=== PATIENT | male | born 1965 | race Two or more races ===

== ENCOUNTER 2017-04-29 13:38 | Inpatient (IN) | payer OTHER ==
[2017-04-29 15:02] VITALS: BMI 24.3
--- NOTE | 2017-04-29 17:33 | HP ---
COWS - Scale Resting Pulse: 0= IN 80 or Below Sweatin= Chills/Flushing Restless Observation: 3= Extraneous Movement Pupil Size: 0= Normal to Room Light Bone or Joint Aches: 2= Severe Diffuse Aches Runny Nose/ Eye Tearin= Runny Nose/Eyes GI Upset > 30mins: 2= Nausea/Diarrhea Tremor Observation: 2= Slight Tremor Visible Yawning Observation: 0= None Anxiety or Irritability: 2=Irritable/Anxious Goose Flesh Skin: 0=Smooth Skin COWS Score: 14 CIWA Score - CIWA Score Nausea/Vomitin-Mild Nausea/No Vomiting Muscle Tremors: 4-Moderate,w/Arms Extend Anxiety: 4-Mod. Anxious/Guarded Agitation: 4-Moderately Restless Paroxysmal Sweats: 1-Minimal Palms Moist Orientation: 1-Uncertain about Date Tacttile Disturbances: 0-None Auditory Disturbances: 0-None Visual Disturbances: 0-None Headache: 0-None Present CIWA-Ar Total Score: 15 Admission [facility] - HPI Chief Complaint: withdrawal sx Allergies/Adverse Reactions: Allergies Allergy/AdvReac Type Severity Reaction Status Date / Time No Known Allergies Allergy Verified 10/21/14 12:31 History of Present Illness: 51 years old male with long history of alcohol opiate nicotine dependence has eczema and depression is admitted to detox Exam Limitations: No Limitations - Ebola screening Have you traveled outside of the country in the last 21 days: No Have you had contact with anyone from an Ebola affected area: No Have you been sick,other than usual withdrawal symptoms: No Do you have a fever: No - Review of Systems Constitutional: Loss of Appetite, Changes in sleep, Unintentional Wgt. Loss EENT: reports: Blurred Vision (eye glasses) Respiratory: reports: No Symptoms reported Cardiac: reports: No Symptoms Reported GI: reports: Nausea, Poor Appetite, Poor Fluid Intake, Abdominal cramping : reports: No Symptoms Reported Musculoskeletal: reports: Back Pain, Joint Pain, Muscle Pain, Neck Pain Integumentary: reports: Lesions (legs and arms and lower trunk eczema) Neuro: reports: Tremors Endocrine: reports: No Symptoms Reported Hematology: reports: No Symptoms Reported Psychiatric: reports: Judgement Intact, Depressed Other Systems: Reviewed and Negative Patient History - Patient Medical History Hx Anemia: No Hx Asthma: No Hx Chronic Obstructive Pulmonary Disease (COPD): No Hx Cancer: No Hx Cardiac Disorders: No Hx Congestive Heart Failure: No Hx Hypertension: No Hx Hypercholesterolemia: No Hx Pacemaker: No HX Cerebrovascular Accident: No Hx Seizures: No Hx Dementia: No Hx Diabetes: No Hx Gastrointestinal Disorders: No Hx Liver Disease: No Hx Genitourinary Disorders: No Hx Sexually Transmitted Disorders: No Hx Renal Disease (ESRD): No Hx Thyroid Disease: No Hx Human Immunodeficiency Virus (HIV): No (negative) Hx Hepatitis C: No Hx Depression: Yes Hx Suicide Attempt: No Hx Bipolar Disorder: No Hx Schizophrenia: No - Patient Surgical History Past Surgical History: No Hx Neurologic Surgery: No Hx Cataract Extraction: No Hx Cardiac Surgery: No Hx Lung Surgery: No Hx Breast Surgery: No Hx Breast Biopsy: No Hx Abdominal Surgery: No Hx Appendectomy: No Hx Cholecystectomy: No Hx Genitourinary Surgery: No Hx Orthopedic Surgery: No - PPD History Previous Implant?: Yes Documented Results: Negative w/proof Implanted On Prior [facility] Admission?: Yes Date: 10/18/14 Results: 0 mm PPD to be Administered?: Yes - Smoking Cessation Smoking history: Current every day smoker Have you smoked in the past 12 months: Yes Aproximately how many cigarettes per day: 20 Cigars Per Day: 0 Hx Chewing Tobacco Use: No Initiated information on smoking cessation: Yes 'Breaking Loose' booklet given: 04/29/17 - Substance & Tx. History Hx Alcohol Use: Yes Hx Substance Use: Yes Substance Use Type: Alcohol, Cocaine, Heroin, Opiates Hx Substance Use Treatment: Yes (2015) - Substances Abused Alcohol Route: Oral Frequency: Daily Amount used: pint vodka Age of first use: 17 Date of Last Use: 04/29/17 Heroin Route: Inhalation Frequency: Daily Amount used: 10 bags Age of first use: 27 Date of Last Use: 04/29/17 Admission Physical Exam [facility]HS - Vital Signs Vital Signs: Vital Signs - 24 hr 04/29/17 15:01 Temperature 96.4 F L Pulse Rate 67 Respiratory 20 Rate Blood Pressure 124/71 - Physical General Appearance: Yes: Appropriately Dressed, Mild Distress, Thin, Tremorous, Irritable, Sweating, Anxious HEENTM: Yes: Hearing grossly Normal, Normal ENT Inspection, Normocephalic, Normal Voice Respiratory: Yes: Chest Non-Tender, Lungs Clear, Normal Breath Sounds, No Respiratory Distress, No Accessory Muscle Use Neck: Yes: Supple, Trachea in good position Breast: Yes: Breasts Symetrical Cardiology: Yes: Regular Rhythm, Regular Rate, S1, S2 Abdominal: Yes: Non Tender, Soft, Increased Bowel Sounds Genitourinary: Yes: Within Normal Limits Back: Yes: Normal Inspection Musculoskeletal: Yes: full range of Motion, Gait Steady, Back pain, Muscle Pain Extremities: Yes: Normal Range of Motion, Non-Tender, Tremors, Erythema (rashes legs arms lower trunk) Neurological: Yes: Alert, Motor Strength 5/5, Normal Response, Depressed Affect Integumentary: Yes: Warm, Rash (legs arms lower trunk) Lymphatic: Yes: Within Normal Limits - Diagnostic (1) Nicotine dependence Current Visit: Yes Status: Acute Qualifiers: Nicotine product type: cigarettes Substance use status: in withdrawal Qualified Code(s): F17.213 - Nicotine dependence, cigarettes, with withdrawal; F17.213 - Nicotine dependence, cigarettes, with withdrawal (2) Alcohol dependence with uncomplicated withdrawal Current Visit: Yes Status: Acute (3) Opioid dependence with withdrawal Current Visit: Yes Status: Acute (4) Cocaine dependence, uncomplicated Current Visit: Yes Status: Chronic (5) Eczema Current Visit: Yes Status: Chronic Qualifiers: Eczema type: flexural Qualified Code(s): L20.82 - Flexural eczema; L20.82 - Flexural eczema (6) Depression Current Visit: Yes Status: Suspected Qualifiers: Depression Type: dysthymia Qualified Code(s): F34.1 - Dysthymic disorder; F34.1 - Dysthymic disorder; F34.1 - Dysthymic disorder (7) Weight loss Current Visit: Yes Status: Acute BHS Breath Alcohol Content Breath Alcohol Content: 0 Urine Drug Screen - Results Drug Screen Negative: No Urine Drug Screen Results: JAIR-Cocaine, OPI-Opiates, BZO-Benzodiazepines, MTD- Methadone, OXY-Oxycodone
[2017-04-29] MEDS ORDERED: NICOTINE POLACRILEX 4 MG GUM BC PRN (17:45)
[2017-04-29] MEDS ORDERED: MAGNESIUM CITRATE 300 ML BOTTLE PO PRN (17:45)
[2017-04-29] MEDS ORDERED: chlordiazePOXIDE HCL 25 MG CAPSULE PO PRN (17:45)
[2017-04-29] MEDS ORDERED: MENTHOL/PHENOL 1 EACH UD MM PRN (17:45)
[2017-04-29] MEDS ORDERED: guaiFENesin/D-METHORPHAN HB 10 ML UNIT-DOSE CUPS PO PRN (17:45)
[2017-04-29] MEDS ORDERED: MAG HYDROX/AL HYDROX/SIMETH 30 ML UNIT-DOSE CUP PO PRN (17:45)
[2017-04-29] MEDS ORDERED: P-EPHED 60MG/TRIPROLIDI 2.5MG TABLET PO PRN (17:45)
[2017-04-29] MEDS ORDERED: ACETAMINOPHEN 325 MG TABLET (FP) PO PRN (17:45)
[2017-04-29] MEDS ORDERED: MAGNESIUM HYDROX 2400MG/30ML ORAL SUSPENSION 30 ML CUP PO PRN (17:45)
[2017-04-29] MEDS ORDERED: LOPERAMIDE HCL 2 MG CAPSULE PO PRN (17:45)
[2017-04-29] MEDS ORDERED: METHADONE HCL 10 MG TABLET (FOR DETOX USE ONLY) PO ONE ×2 (19:15→23:00)
[2017-04-29] MEDS: THIAMINE HCL 100 MG TABLET (FP) PO SCH (22:23)
[2017-04-29] MEDS: diphenhydrAMINE HCL 50 MG CAPSULE PO PRN (22:23)
[2017-04-29] MEDS: chlordiazePOXIDE HCL 25 MG CAPSULE PO SCH (22:24)
[2017-04-29] MEDS: TRIAMCINOLONE ACET 0.1% CREAM 15 GM TUBE TP SCH (22:25)
[2017-04-29 22:27] LABS: URINE APPEARANCE SLCLOUDY; URINE BILIRUBIN NEGATIVE (NEGATIVE); URINE BLOOD NEGATIVE (NEGATIVE); URINE COLOR YELLOW; URINE GLUCOSE (UA) NEGATIVE (NEGATIVE); URINE KETONE NEGATIVE (NEGATIVE); URINE NITRITE NEGATIVE (NEGATIVE); URINE PROTEIN NEGATIVE (NEGATIVE); URINE UROBILINOGEN NEGATIVE mg/dL (0.2-1.0)
[2017-04-30] MEDS: chlordiazePOXIDE HCL 25 MG CAPSULE PO SCH ×4 (05:20→22:28)
--- NOTE | 2017-04-30 08:24 | CONSULT ---
[facility] Psychiatric Consult - Data Date of interview: 04/30/17 Admission source: [facility] Identifying data: This is 51 years old male with no psychiatric hospitalization history intoxicated with: Alcohol, Cannabis, Opioids, Cocaine and Nicotine Substance Abuse History: - Smoking Cessation. Smoking history: Current every day smoker. Have you smoked in the past 12 months: Yes. Aproximately how many cigarettes per day: 20. Cigars Per Day: 0. Hx Chewing Tobacco Use: No. Initiated information on smoking cessation: Yes. 'Breaking Loose' booklet given : 04/29/17. - Substance & Tx. History. Hx Alcohol Use: Yes. Hx Substance Use : Yes. Substance Use Type: Alcohol, Cocaine, Heroin, Opiates. Hx Substance Use Treatment: Yes (2015). - Substances Abused. Alcohol. Route: Oral. Frequency: Daily. Amount used: pint vodka. Age of first use: 17. Date of Last Use: 04/29/17. Heroin. Route: Inhalation. Frequency: Daily. Amount used: 10 bags. Age of first use: 27. Date of Last Use: 04/29/17 Medical History: Eczema, Weight loss history. Psychiatric History: Denies past psychiatric history Physical/Sexual Abuse/Trauma History: Denies Additional Comment: Observation. Detox Unit Care Protocol Mental Status Exam - Mental Status Exam Alert and Oriented to: Person Cognitive Function: Fair Patient Appearance: Unkempt Mood: Sad Affect: Flat Patient Behavior: Sedated Speech Pattern: Delayed Voice Loudness: Mildly Soft/Quiet Thought Process: Circumstantial Thought Disorder: Being Controlled Hallucinations: Denies Suicidal Ideation: Denies Homicidal Ideation: Denies Insight/Judgement: Fair Sleep: Difficulty falling asleep Appetite: Weight loss Muscle strength/Tone: Mild Hypotonicity Gait/Station: Shuffling Additional Comments: Observation. Detox Unit Care Protocol Psychiatric Findings - Problem List ([place] 1, 2,3) (1) Alcohol dependence with uncomplicated withdrawal Current Visit: Yes Status: Acute (2) Nicotine dependence Current Visit: Yes Status: Acute Qualifiers: Nicotine product type: cigarettes Substance use status: in withdrawal Qualified Code(s): F17.213 - Nicotine dependence, cigarettes, with withdrawal; F17.213 - Nicotine dependence, cigarettes, with withdrawal (3) Opioid dependence with withdrawal Current Visit: Yes Status: Acute (4) Weight loss Current Visit: Yes Status: Acute (5) Cocaine dependence, uncomplicated Current Visit: Yes Status: Chronic (6) Depression Current Visit: Yes Status: Suspected Qualifiers: Depression Type: dysthymia Qualified Code(s): F34.1 - Dysthymic disorder; F34.1 - Dysthymic disorder; F34.1 - Dysthymic disorder (7) Alcohol dependence Current Visit: No Status: Acute (8) Cocaine dependence Current Visit: No Status: Acute (9) Heroin dependence Current Visit: No Status: Acute (10) Opioid-induced sleep disorder Current Visit: No Status: Acute (11) Drug-induced mood disorder Current Visit: Yes Status: Suspected - Initial Treatment Plan Initial Treatment Plan: Observation. Detox Unit Care Protocol
[2017-04-30] MEDS ORDERED: METHADONE HCL 10 MG TABLET (FOR DETOX USE ONLY) PO SCH (10:00)
[2017-04-30 10:08] LABS: MCH 30.7 pg (25.7-33.7); MCHC 33.2 g/dl (32.0-35.9); MEAN CELL VOLUME 92.4 fl (80-96); MEAN PLT VOLUME 7.2 fl (7.5-11.1); PLATELET COUNT 347 K/MM3 (134-434); RDW 13.5 % (11.9-15.9); WHITE BLOOD COUNT 5.2 K/mm3 (4.0-10.0)
[2017-04-30] MEDS: PRENATAL VITAMINS W/ FOLIC ACID TABLET (FP) PO SCH (10:19)
[2017-04-30] MEDS: NICOTINE 21 MG/24 HOURS TOPICAL PATCH TD SCH (10:21)
[2017-04-30 10:23] LABS: URINE LEUK ESTERASE Negative (NEGATIVE)
--- NOTE | 2017-04-30 10:43 | PN ---
S CIWA - CIWA Score Nausea/Vomitin-No Nausea/No Vomiting Muscle Tremors: 4-Moderate,w/Arms Extend Anxiety: 3 Agitation: 4-Moderately Restless Paroxysmal Sweats: 3 Orientation: 0-Oriented Tacttile Disturbances: 0-None Auditory Disturbances: 0-None Visual Disturbances: 0-None Headache: 0-None Present CIWA-Ar Total Score: 14 BHS COWS - Scale Resting Pulse: 0= [place] 80 or Below Sweatin=Flushed/Facial Moisture Restless Observation: 1= Difficult to Sit Still Pupil Size: 0= Normal to Room Light Bone or Joint Aches: 1= Mild Discomfort Runny Nose/ Eye Tearin= Runny Nose/Eyes GI Upset > 30mins: 1= Stomach Cramp Tremor Observation of Outstretched Hands: 2= Slight Tremor Visible Yawning Observation: 2= >3x During Session Anxiety or Irritability: 2=Irritable/Anxious Goose Flesh Skin: 0=Smooth Skin COWS Score: 13 BHS Progress Note (SOAP) Subjective: shakes sweats interrupted sleep agitation body aches Objective: 04/30/17 10:42 Vital Signs Temperature 97.1 F L 04/30/17 10:07 Pulse Rate 56 L 04/30/17 10:07 Respiratory Rate 18 04/30/17 10:07 Blood Pressure 121/82 04/30/17 10:07 O2 Sat by Pulse Oximetry (%) Laboratory Tests 04/29/17 04/30/17 22:10 07:00 WBC 5.2 RBC 4.08 Hgb 12.5 D Hct 37.7 MCV 92.4 MCH 30.7 MCHC 33.2 RDW 13.5 D Plt Count 347 D MPV 7.2 L Urine Color Yellow Urine Appearance Slcloudy Urine pH 5.0 Urine Protein Negative Urine Glucose (UA) Negative Urine Ketones Negative Urine Blood Negative Urine Nitrite Negative Urine Bilirubin Negative Urine Urobilinogen Negative labs pending [id number] ambulating no acute distress Assessment: 04/30/17 10:43 withdrawal sx Plan: continue detox increase fluids labs pending
--- NOTE | 2017-04-30 10:45 | EKG ---
Test Reason : Blood Pressure : / mmHG Vent. Rate : 061 BPM Atrial Rate : 061 BPM P-R Int : 190 ms QRS Dur : 092 ms QT Int : 418 ms P-R-T Axes : 079 075 063 degrees QTc Int : 420 ms NORMAL SINUS RHYTHM WITH SINUS ARRHYTHMIA NORMAL ECG NO PREVIOUS ECGS AVAILABLE Confirmed by BEN ZUNIGA, ARTI ([id number]) on 04/30/2017 10:45:00 AM Referred By: Confirmed By:ARTI CONTRERAS MD
[2017-04-30 10:53] LABS: ALBUMIN 2.8 g/dl (3.4-5.0); ALK PHOS 94 U/L (45-117); ANION GAP 5 (8-16); BILIRUBIN,TOTAL 0.5 mg/dL (0.2-1.0); CALCIUM 8.3 mg/dL (8.5-10.1); CO2 30 mmol/L (21-32); CREATININE 0.9 mg/dL (0.7-1.3); GLUCOSE,RANDOM 96 mg/dL (74-106); SGOT/AST 16 U/L (15-37); SGPT/ALT 22 U/L (12-78); TOT PROT 5.8 g/dl (6.4-8.2)
[2017-04-30] MEDS: TRIAMCINOLONE ACET 0.1% CREAM 15 GM TUBE TP SCH ×4 (12:13→22:27)
[2017-04-30] MEDS: THIAMINE HCL 100 MG TABLET (FP) PO SCH (22:28)
[2017-05-01] MEDS: chlordiazePOXIDE HCL 25 MG CAPSULE PO SCH ×3 (05:20→17:55)
[2017-05-01] MEDS: METHADONE HCL 5 MG TABLET (FOR DETOX USE ONLY) PO SCH (10:11)
[2017-05-01] MEDS: PRENATAL VITAMINS W/ FOLIC ACID TABLET (FP) PO SCH (10:11)
[2017-05-01] MEDS: NICOTINE 21 MG/24 HOURS TOPICAL PATCH TD SCH (10:12)
[2017-05-01] MEDS: TRIAMCINOLONE ACET 0.1% CREAM 15 GM TUBE TP SCH ×4 (10:12→22:42)
--- NOTE | 2017-05-01 10:19 | PN ---
S CIWA - CIWA Score Nausea/Vomitin Muscle Tremors: 2 Anxiety: 2 Agitation: 2 Paroxysmal Sweats: 2 Orientation: 0-Oriented Tacttile Disturbances: 2-Mild Itch/Numbness/Burn Auditory Disturbances: 0-None Visual Disturbances: 0-None Headache: 0-None Present CIWA-Ar Total Score: 12 BHS COWS - Scale Resting Pulse: 0= [place] 80 or Below Sweatin=Flushed/Facial Moisture Restless Observation: 1= Difficult to Sit Still Pupil Size: 1= Pupils >than Normal Bone or Joint Aches: 1= Mild Discomfort Runny Nose/ Eye Tearin= Nasal Congestion GI Upset > 30mins: 1= Stomach Cramp Tremor Observation of Outstretched Hands: 1= Tremor [place], Not Seen Yawning Observation: 0= None Anxiety or Irritability: 1=Feels Anxious/Irritable Goose Flesh Skin: 0=Smooth Skin COWS Score: 9 BHS Progress Note (SOAP) Subjective: interrupted sleep,sweats but better Objective: 05/01/17 10:17 Last Vital Signs Temp Pulse Resp BP Pulse Ox 97.9 F 72 18 130/86 05/01/17 06:00 05/01/17 06:00 05/01/17 06:00 05/01/17 06:00 Laboratory Tests 04/29/17 04/29/17 04/30/17 07:00 22:10 07:00 WBC 5.2 RBC 4.08 Hgb 12.5 D Hct 37.7 MCV 92.4 MCH 30.7 MCHC 33.2 RDW 13.5 D Plt Count 347 D MPV 7.2 L Sodium Potassium Chloride Carbon Dioxide Anion Gap BUN Creatinine Creat Clearance w eGFR Random Glucose Calcium Total Bilirubin AST ALT Alkaline Phosphatase Total Protein Albumin Urine Color Yellow Urine Appearance Slcloudy Urine pH 5.0 Ur Specific [place] 1.025 Urine Protein Negative Urine Glucose (UA) Negative Urine Ketones Negative Urine Blood Negative Urine Nitrite Negative Urine Bilirubin Negative Urine Urobilinogen Negative Ur Leukocyte Esterase Negative RPR Titer Hepatitis C Antibody <0.1 04/30/17 04/30/17 07:00 07:00 WBC RBC Hgb Hct MCV MCH MCHC RDW Plt Count MPV Sodium 138 Potassium 4.3 Chloride 103 Carbon Dioxide 30 Anion Gap 5 L BUN 14 Creatinine 0.9 D Creat Clearance w eGFR > 60 Random Glucose 96 Calcium 8.3 L Total Bilirubin 0.5 AST 16 ALT 22 Alkaline Phosphatase 94 D Total Protein 5.8 L Albumin 2.8 L Urine Color Urine Appearance Urine pH Ur Specific [place] Urine Protein Urine Glucose (UA) Urine Ketones Urine Blood Urine Nitrite Urine Bilirubin Urine Urobilinogen Ur Leukocyte Esterase RPR Titer Nonreactive Hepatitis C Antibody pt aox3 in nad lying in bed Assessment: 05/01/17 10:18 withdrawal sx's Plan: cont. detox increase fluids
[2017-05-01] MEDS: chlordiazePOXIDE 5 MG CAPSULE PO SCH (22:40)
[2017-05-01] MEDS: diphenhydrAMINE HCL 50 MG CAPSULE PO PRN (22:40)
[2017-05-01] MEDS: THIAMINE HCL 100 MG TABLET (FP) PO SCH (22:40)
[2017-05-02] MEDS: chlordiazePOXIDE 5 MG CAPSULE PO SCH ×3 (05:42→17:48)
[2017-05-02] MEDS: PRENATAL VITAMINS W/ FOLIC ACID TABLET (FP) PO SCH (10:10)
[2017-05-02] MEDS: METHADONE HCL 5 MG TABLET (FOR DETOX USE ONLY) PO SCH (10:10)
[2017-05-02] MEDS: NICOTINE 21 MG/24 HOURS TOPICAL PATCH TD SCH (10:11)
[2017-05-02] MEDS: TRIAMCINOLONE ACET 0.1% CREAM 15 GM TUBE TP SCH ×4 (10:13→22:13)
[2017-05-02] MEDS: IBUPROFEN 400 MG TABLET (FP) PO PRN (12:12)
--- NOTE | 2017-05-02 13:04 | PN ---
S Progress Note (SOAP) Subjective: ALERT,IRRITABLE,ANXIOUS,INTERRUPTED SLEEP,PAIN IN THE BODY AND BACK Objective: 05/02/17 13:03 Vital Signs Temperature 97.5 F L 05/02/17 06:00 Pulse Rate 70 05/02/17 06:00 Respiratory Rate 18 05/02/17 06:00 Blood Pressure 139/99 05/02/17 06:00 O2 Sat by Pulse Oximetry (%) Assessment: 05/02/17 13:03 WITHDRAWAL SYMPTOM Plan: CONTINUE DETOX,
[2017-05-02] MEDS: chlordiazePOXIDE HCL 10 MG CAPSULE PO SCH (22:13)
[2017-05-02] MEDS: THIAMINE HCL 100 MG TABLET (FP) PO SCH (22:13)
[2017-05-02] MEDS: diphenhydrAMINE HCL 50 MG CAPSULE PO PRN (22:14)
[2017-05-03] MEDS: diphenhydrAMINE HCL 50 MG CAPSULE PO PRN ×2 (00:41→22:10)
[2017-05-03] MEDS: chlordiazePOXIDE HCL 10 MG CAPSULE PO SCH ×3 (05:42→17:33)
[2017-05-03] MEDS ORDERED: METHADONE HCL 10 MG TABLET (FOR DETOX USE ONLY) PO SCH (10:00)
[2017-05-03] MEDS: TRIAMCINOLONE ACET 0.1% CREAM 15 GM TUBE TP SCH ×4 (10:07→22:10)
[2017-05-03] MEDS: NICOTINE 21 MG/24 HOURS TOPICAL PATCH TD SCH (10:08)
[2017-05-03] MEDS: PRENATAL VITAMINS W/ FOLIC ACID TABLET (FP) PO SCH (10:08)
--- NOTE | 2017-05-03 13:05 | PN ---
S Progress Note (SOAP) Subjective: ALERT,IRRITABLE,ANXIOUS,INTERRUPTED SLEEP Objective: 05/03/17 13:04 Vital Signs Temperature 98.0 F 05/03/17 10:00 Pulse Rate 68 05/03/17 10:00 Respiratory Rate 18 05/03/17 10:00 Blood Pressure 137/105 05/03/17 10:00 O2 Sat by Pulse Oximetry (%) Assessment: 05/03/17 13:04 WITHDRAWAL SYMPTOM Plan: CONTINUE DETOX,DISCHARGE IN AM
[2017-05-03] MEDS: IBUPROFEN 400 MG TABLET (FP) PO PRN (17:33)
[2017-05-03] MEDS: THIAMINE HCL 100 MG TABLET (FP) PO SCH (22:10)
[2017-05-04] MEDS: diphenhydrAMINE HCL 50 MG CAPSULE PO PRN (02:00)
[2017-05-04] MEDS ORDERED: METHADONE HCL 5 MG TABLET (FOR DETOX USE ONLY) PO SCH (06:00)
--- NOTE | 2017-05-04 08:24 | DS ---
[facility] Detox Discharge Summary Admission Date: 04/29/17 Discharge Date: 05/04/17 - History Present History: Alcohol Dependence, Cannabis Dependence, Cocaine Dependence, Opioid Dependence - Physical Exam Results Vital Signs: Vital Signs Temperature 96.4 F L 05/04/17 06:16 Pulse Rate 66 05/04/17 06:16 Respiratory Rate 16 05/04/17 06:16 Blood Pressure 130/85 05/04/17 06:16 O2 Sat by Pulse Oximetry (%) - Treatment Hospital Course: Detox Protocol Followed, Detoxed Safely, Responded well, Discharged Condition Good, Rehab Referral Accepted - Medication Discharge Medications: Ambulatory Orders NK [No Known Home Medication] 04/29/17 - Diagnosis (1) Alcohol dependence with uncomplicated withdrawal Current Visit: Yes Status: Chronic (2) Nicotine dependence Current Visit: Yes Status: Chronic Qualifiers: Nicotine product type: cigarettes Substance use status: uncomplicated Qualified Code(s): F17.210 - Nicotine dependence, cigarettes, uncomplicated; F17.210 - Nicotine dependence, cigarettes, uncomplicated (3) Opioid dependence with withdrawal Current Visit: Yes Status: Chronic (4) Weight loss Current Visit: Yes Status: Chronic (5) Cocaine dependence, uncomplicated Current Visit: Yes Status: Chronic (6) Eczema Current Visit: Yes Status: Chronic Qualifiers: Eczema type: flexural Qualified Code(s): L20.82 - Flexural eczema; L20.82 - Flexural eczema - AMA Did Patient Leave Against Medical Advice: No (outpatient)
[2017-05-04] MEDS: PRENATAL VITAMINS W/ FOLIC ACID TABLET (FP) PO SCH (09:04)
[2017-05-04] MEDS: TRIAMCINOLONE ACET 0.1% CREAM 15 GM TUBE TP SCH (09:05)
[2017-05-04 09:40] VITALS: BP 144/91; PULSE 81; TEMP 97.9
== END 2017-05-04 09:33 | disposition home or self-care (01) | DRG 773 ==
LOC: YASAS 13:38 → Y6N 19:24
PROVIDERS: ADMIT Internal Medicine; ATTEND Internal Medicine
PROC: HZ2ZZZZ Detoxification Services for Substance Abuse Treatment (ICD-10-PCS; principal; 2017-04-29)
DX: F11.23 Opioid dependence with withdrawal (principal); F10.230 Alcohol dependence with withdrawal, uncomplicated; F14.20 Cocaine dependence, uncomplicated; F17.210 Nicotine dependence, cigarettes, uncomplicated; F34.1 Dysthymic disorder; F19.24 Other psychoactive substance dependence with psychoactive substance-induced mood disorder; L20.82 Flexural eczema; R63.4 Abnormal weight loss; Z68.24 Body mass index [BMI] 24.0-24.9, adult
CPT/HCPCS: 36415; 80053; 81003; 85027; 86593; 86803; 93005; 93010

== ENCOUNTER 2017-10-27 11:34 | Inpatient (IN) | payer OTHER ==
[2017-10-27 12:23] VITALS: BMI 24.7
--- NOTE | 2017-10-27 15:00 | HP ---
COWS - Scale Resting Pulse: 0= [place] 80 or Below Sweatin=Flushed/Facial Moisture Restless Observation: 1= Difficult to Sit Still Pupil Size: 0= Normal to Room Light Bone or Joint Aches: 2= Severe Diffuse Aches Runny Nose/ Eye Tearin= Runny Nose/Eyes GI Upset > 30mins: 2= Nausea/Diarrhea Tremor Observation: 2= Slight Tremor Visible Yawning Observation: 1= 1-2x During Session Anxiety or Irritability: 2=Irritable/Anxious Goose Flesh Skin: 0=Smooth Skin COWS Score: 14 CIWA Score - CIWA Score Nausea/Vomitin Muscle Tremors: 3 Anxiety: 4-Mod. Anxious/Guarded Agitation: 3 Paroxysmal Sweats: 3 Orientation: 0-Oriented Tacttile Disturbances: 2-Mild Itch/Numbness/Burn Auditory Disturbances: 0-None Visual Disturbances: 0-None Headache: 0-None Present CIWA-Ar Total Score: 18 Admission ROS [facility] - HPI Chief Complaint: "I'm here because I fell out of control and I need to get my life back together and get back to working." Patient is here to detox from Alcohol and Heroin. Allergies/Adverse Reactions: Allergies Allergy/AdvReac Type Severity Reaction Status Date / Time No Known Allergies Allergy Verified 10/27/17 14:11 History of Present Illness: Patient is a 52 YO male here to Detox from Alcohol and Heroin. Patient has had two previous detox / rehab admissions at [facility] in past (last: 04/2017). Longest Period of sobriety in recent years: approx. 2 years (2014 - 2016). Exam Limitations: No Limitations - Ebola screening Have you traveled outside of the country in the last 21 days: No Have you had contact with anyone from an Ebola affected area: No Have you been sick,other than usual withdrawal symptoms: No Do you have a fever: No - Review of Systems Constitutional: Chills, Diaphoresis, Fever, Loss of Appetite, Malaise, Night Sweats, Changes in sleep, Unintentional Wgt. Loss (Lost approx. 40 lbs over last six months.) EENT: reports: No Symptoms Reported, Nose Congestion, Sinus Pressure Respiratory: reports: No Symptoms reported Cardiac: reports: No Symptoms Reported GI: reports: Diarrhea, Nausea, Poor Appetite, Vomiting, Indigestion, Abdominal cramping : reports: No Symptoms Reported Musculoskeletal: reports: Back Pain Integumentary: reports: No Symptoms Reported Neuro: reports: Headache, Tremors Endocrine: reports: No Symptoms Reported Hematology: reports: No Symptoms Reported Psychiatric: reports: Judgement Intact, Mood/Affect Appropiate, Orientated x3, Anxious Other Systems: Reviewed and Negative Patient History - Patient Medical History Hx Anemia: No Hx Asthma: No Hx Chronic Obstructive Pulmonary Disease (COPD): No Hx Cancer: No Hx Cardiac Disorders: No Hx Congestive Heart Failure: No Hx Hypertension: No Hx Hypercholesterolemia: No Hx Pacemaker: No HX Cerebrovascular Accident: No Hx Seizures: No Hx Dementia: No Hx Diabetes: No Hx Gastrointestinal Disorders: No Hx Liver Disease: No Hx Genitourinary Disorders: No Hx Sexually Transmitted Disorders: No Hx Renal Disease (ESRD): No Hx Thyroid Disease: No Hx Human Immunodeficiency Virus (HIV): No (Last Tested: 04/2017: NEGATIVE.) Hx Hepatitis C: No (Last Tested: 04/2017: NEGATIVE.) Hx Depression: No Hx Suicide Attempt: No (PATIENT DENIES CURRENT SI / HI.) Hx Bipolar Disorder: No Hx Schizophrenia: No Other Medical History: HX. MIGRAINES (Uses Ibuprofen to treat). - Patient Surgical History Past Surgical History: No Hx Neurologic Surgery: No Hx Cataract Extraction: No Hx Cardiac Surgery: No Hx Lung Surgery: No Hx Breast Surgery: No Hx Breast Biopsy: No Hx Abdominal Surgery: No Hx Appendectomy: No Hx Cholecystectomy: No Hx Genitourinary Surgery: No Hx Section: No Hx Orthopedic Surgery: No Other Surgical History: DENIES. Anesthesia Reaction: No - PPD History Previous Implant?: No Documented Results: Negative w/proof Date: 05/01/17 Results: 0 MM PPD to be Administered?: No - Reproductive History Patient is a Female of Child Bearing Age (11 -55 yrs old): No (PATIENT IS MALE.) Patient : No - Smoking Cessation Smoking history: Current every day smoker Have you smoked in the past 12 months: Yes Aproximately how many cigarettes per day: 20 Cigars Per Day: 0 Hx Chewing Tobacco Use: No Initiated information on smoking cessation: Yes 'Breaking Loose' booklet given: 10/27/17 (GIVEN TO PATIENT.) - Substance & Tx. History Hx Alcohol Use: Yes Hx Substance Use: Yes Substance Use Type: Alcohol, Cocaine, Heroin Hx Substance Use Treatment: Yes (Detox @ [facility] (04/2017); Detox + Rehab @ [facility]: 2015.) - Substances Abused Heroin Route: Inhalation Frequency: Daily Amount used: 10 Bags Age of first use: 27 Date of Last Use: 10/27/17 Cocaine Route: Smoking Frequency: Daily Amount used: $100 Age of first use: 27 Date of Last Use: 10/26/17 etoh Route: Oral Frequency: Daily Amount used: 3 pint- [place], Vodka Age of first use: 27 Date of Last Use: 10/27/17 Family Disease History - Family Disease History Family Disease History: Other: Mother (Seizures.) [facility] - Vital Signs Vital Signs: Vital Signs - 24 hr 10/27/17 12:21 Temperature 96.5 F L Pulse Rate 80 Respiratory 18 Rate Blood Pressure 149/96 - Physical General Appearance: Yes: No Apparent Distress, Nourished, Appropriately Dressed , Tremorous, Sweating, Anxious HEENTM: Yes: Hearing grossly Normal, Normocephalic, Normal Voice, MILA, Pharynx Normal Respiratory: Yes: Chest Non-Tender, Lungs Clear, No Respiratory Distress, No Accessory Muscle Use Neck: Yes: No masses,lesions,Nodules, Supple, Trachea in good position Breast: Yes: Breast Exam Deferred Cardiology: Yes: Regular Rhythm, Regular Rate, S1, S2 Abdominal: Yes: Normal Bowel Sounds, Non Tender, Flat, Soft Genitourinary: Yes: Within Normal Limits Back: Yes: Decreased Range of Motion Musculoskeletal: Yes: Gait Steady, Back pain Extremities: Yes: Normal Capillary Refill, Normal Range of Motion, Non-Tender, Tremors Neurological: Yes: Fully Oriented, Alert, Normal Mood/Affect, Normal Response Integumentary: Yes: Normal Color, Dry, Warm, Other (Prurit[place] around toes of bilateral feet. Patient reports history of Tinea Pedis.) Lymphatic: Yes: Within Normal Limits - Diagnostic (1) History of migraine headaches Current Visit: Yes Status: Suspected (2) Tinea pedis Current Visit: Yes Status: Acute Qualifiers: Laterality: bilateral Qualified Code(s): B35.3 - Tinea pedis (3) Alcohol dependence with uncomplicated withdrawal Current Visit: Yes Status: Acute (4) Nicotine dependence Current Visit: Yes Status: Chronic Qualifiers: Nicotine product type: cigarettes Substance use status: uncomplicated Qualified Code(s): F17.210 - Nicotine dependence, cigarettes, uncomplicated (5) Opioid dependence with withdrawal Current Visit: Yes Status: Acute (6) Dehydration Current Visit: Yes Status: Acute (7) Cocaine dependence, uncomplicated Current Visit: Yes Status: Chronic Cleared for Admission [facility] - [facility]ox [facility] Level of Care: Medically Managed Detox Regimen/Protocol: Methadone/Librium [facility] Breath Alcohol Content Breath Alcohol Content: 0 Urine Drug Screen - Results Drug Screen Negative: No Urine Drug Screen Results: JAIR-Cocaine, OPI-Opiates
[2017-10-27] MEDS ORDERED: MAGNESIUM CITRATE 300 ML BOTTLE PO PRN (15:27)
[2017-10-27] MEDS ORDERED: chlordiazePOXIDE HCL 25 MG CAPSULE PO PRN (15:27)
[2017-10-27] MEDS ORDERED: ACETAMINOPHEN 325 MG TABLET (FP) PO PRN (15:27)
[2017-10-27] MEDS ORDERED: chlordiazePOXIDE HCL 25 MG CAPSULE PO ONE (15:27)
[2017-10-27] MEDS ORDERED: LOPERAMIDE HCL 2 MG CAPSULE PO PRN (15:27)
[2017-10-27] MEDS ORDERED: P-EPHED 60MG/TRIPROLIDI 2.5MG TABLET PO PRN (15:27)
[2017-10-27] MEDS ORDERED: MENTHOL/PHENOL 1 EACH UD MM PRN (15:27)
[2017-10-27] MEDS ORDERED: MAG HYDROX/AL HYDROX/SIMETH 30 ML UNIT-DOSE CUP PO PRN (15:27)
[2017-10-27] MEDS ORDERED: MAGNESIUM HYDROX 2400MG/30ML ORAL SUSPENSION 30 ML CUP PO PRN (15:27)
[2017-10-27] MEDS ORDERED: IBUPROFEN 400 MG TABLET (FP) PO PRN (15:27)
[2017-10-27] MEDS ORDERED: guaiFENesin/D-METHORPHAN HB 10 ML UNIT-DOSE CUPS PO PRN (15:27)
[2017-10-27] MEDS ORDERED: NICOTINE POLACRILEX 2 MG GUM BC PRN (15:27)
[2017-10-27] MEDS: chlordiazePOXIDE HCL 25 MG CAPSULE PO SCH ×2 (17:20→22:23)
[2017-10-27] MEDS ORDERED: METHADONE HCL 10 MG TABLET (FOR DETOX USE ONLY) PO ONE ×2 (17:30→23:00)
[2017-10-27] MEDS: THIAMINE HCL 100 MG TABLET (FP) PO SCH (22:22)
[2017-10-27] MEDS: TOLNAFTATE 1% CREAM 15 GM TUBE TP SCH (23:28)
[2017-10-28 06:14] LABS: URINE APPEARANCE CLEAR; URINE BILIRUBIN NEGATIVE (<2.0 mg/dL); URINE BLOOD 2+ (NEGATIVE); URINE COLOR YELLOW; URINE GLUCOSE (UA) NEGATIVE (NEGATIVE); URINE KETONE NEGATIVE (NEGATIVE); URINE LEUK ESTERASE NEGATIVE (NEGATIVE); URINE NITRITE NEGATIVE (NEGATIVE); URINE PROTEIN NEGATIVE (NEGATIVE)
[2017-10-28] MEDS: chlordiazePOXIDE HCL 25 MG CAPSULE PO SCH ×4 (06:37→22:09)
[2017-10-28 07:02] LABS: CALCIUM OXALATE CRYSTALS RARE /hpf (NONE SEEN); URINE MUCUS RARE
[2017-10-28] MEDS ORDERED: METHADONE HCL 10 MG TABLET (FOR DETOX USE ONLY) PO SCH (10:00)
[2017-10-28 10:09] LABS: HEMATOCRIT 36.8 % (35.4-49); HEMOGLOBIN 12.4 GM/dL (11.7-16.9); MCH 31.8 pg (25.7-33.7); MCHC 33.5 g/dl (32.0-35.9); MEAN CELL VOLUME 94.8 fl (80-96); MEAN PLT VOLUME 7.7 fl (7.5-11.1); PLATELET COUNT 270 K/MM3 (134-434); RBC 3.88 M/mm3 (4.00-5.60); RDW 13.9 % (11.9-15.9); WHITE BLOOD COUNT 4.7 K/mm3 (4.0-10.0)
[2017-10-28] MEDS: PRENATAL VITAMINS W/ FOLIC ACID TABLET (FP) PO SCH (10:48)
[2017-10-28] MEDS: TOLNAFTATE 1% CREAM 15 GM TUBE TP SCH ×2 (10:48→22:09)
[2017-10-28 10:50] LABS: ALBUMIN 3.4 g/dl (3.4-5.0); ALK PHOS 73 U/L (45-117); ANION GAP 4 (8-16); BILIRUBIN,TOTAL 0.3 mg/dL (0.2-1.0); BLOOD UREA NITROGEN 17 mg/dL (7-18); CALCIUM 8.4 mg/dL (8.5-10.1); CHLORIDE 107 mmol/L (98-107); CO2 29 mmol/L (21-32); CREATININE 1.3 mg/dL (0.7-1.3); GLUCOSE,RANDOM 122 mg/dL (74-106); POTASSIUM 4.2 mmol/L (3.5-5.1); SGOT/AST 25 U/L (15-37); SGPT/ALT 27 U/L (12-78); SODIUM 140 mmol/L (136-145); TOT PROT 6.5 g/dl (6.4-8.2)
--- NOTE | 2017-10-28 11:31 | EKG ---
Test Reason : Blood Pressure : / mmHG Vent. Rate : 061 BPM Atrial Rate : 061 BPM P-R Int : 194 ms QRS Dur : 092 ms QT Int : 400 ms P-R-T Axes : 052 064 047 degrees QTc Int : 402 ms NORMAL SINUS RHYTHM WITH SINUS ARRHYTHMIA NORMAL ECG WHEN COMPARED WITH ECG OF 29-APR-2017 19:16, NO SIGNIFICANT CHANGE WAS FOUND Confirmed by J CARLOS ZUNIGA, ANN ([id number]) on 10/28/2017 11:30:59 AM Referred By: Amanda MARTIN Confirmed By:ANN WHITMAN MD
--- NOTE | 2017-10-28 12:15 | PN ---
[facility] CIWA - CIWA Score Nausea/Vomitin Muscle Tremors: 3 Anxiety: 3 Agitation: 2 Paroxysmal Sweats: 1-Minimal Palms Moist Orientation: 0-Oriented Tacttile Disturbances: 1-Very Mild Itch/Numbness Auditory Disturbances: 1-Very Mild Visual Disturbances: 0-None Headache: 2-Mild CIWA-Ar Total Score: 16 BHS COWS - Scale Resting Pulse: 0= [place] 80 or Below Sweatin= Chills/Flushing Restless Observation: 3= Extraneous Movement Pupil Size: 1= Pupils >than Normal Bone or Joint Aches: 2= Severe Diffuse Aches Runny Nose/ Eye Tearin= Runny Nose/Eyes GI Upset > 30mins: 2= Nausea/Diarrhea Tremor Observation of Outstretched Hands: 2= Slight Tremor Visible Yawning Observation: 1= 1-2x During Session Anxiety or Irritability: 2=Irritable/Anxious Goose Flesh Skin: 0=Smooth Skin COWS Score: 16 [facility] Progress Note (SOAP) Subjective: ALERT,IRRITABLE,ANXIOUS,INTERRUPTED SLEEP,TREMOR,PAIN IN THE BODY AND BACK Objective: 10/28/17 12:10 Vital Signs Temperature 99.1 F 10/28/17 10:19 Pulse Rate 76 10/28/17 10:19 Respiratory Rate 20 10/28/17 10:19 Blood Pressure 147/87 10/28/17 10:19 O2 Sat by Pulse Oximetry (%) 10/28/17 12:10 EKG NSR WITH SINUS ARRHYTHMIA QT 396/398 NO HEST PAIN,NO SOB,NO DIZZINESS Laboratory Last Values WBC 4.7 K/mm3 (4.0-10.0) 10/28/17 06:00 RBC 3.88 M/mm3 (4.00-5.60) L 10/28/17 06:00 Hgb 12.4 GM/dL (11.7-16.9) 10/28/17 06:00 Hct 36.8 % (35.4-49) 10/28/17 06:00 MCV 94.8 fl (80-96) 10/28/17 06:00 MCH 31.8 pg (25.7-33.7) 10/28/17 06:00 MCHC 33.5 g/dl (32.0-35.9) 10/28/17 06:00 RDW 13.9 % (11.9-15.9) 10/28/17 06:00 Plt Count 270 K/MM3 (134-434) D 10/28/17 06:00 MPV 7.7 fl (7.5-11.1) 10/28/17 06:00 Sodium 140 mmol/L (136-145) 10/28/17 06:00 Potassium 4.2 mmol/L (3.5-5.1) 10/28/17 06:00 Chloride 107 mmol/L (98-107) 10/28/17 06:00 Carbon Dioxide 29 mmol/L (21-32) 10/28/17 06:00 Anion Gap 4 (8-16) L 10/28/17 06:00 BUN 17 mg/dL (7-18) D 10/28/17 06:00 Creatinine 1.3 mg/dL (0.7-1.3) D 10/28/17 06:00 Creat Clearance w eGFR 58.43 (>60) 10/28/17 06:00 Random Glucose 122 mg/dL (74-106) H D 10/28/17 06:00 Calcium 8.4 mg/dL (8.5-10.1) L 10/28/17 06:00 Total Bilirubin 0.3 mg/dL (0.2-1.0) D 10/28/17 06:00 AST 25 U/L (15-37) D 10/28/17 06:00 ALT 27 U/L (12-78) D 10/28/17 06:00 Alkaline Phosphatase 73 U/L (45-117) D 10/28/17 06:00 Total Protein 6.5 g/dl (6.4-8.2) 10/28/17 06:00 Albumin 3.4 g/dl (3.4-5.0) D 10/28/17 06:00 Urine Color Yellow 10/27/17 18:59 Urine Appearance Clear 10/27/17 18:59 Urine pH 6.0 (5.0-8.0) 10/27/17 18:59 Ur Specific Raymond 1.023 (1.001-1.035) 10/27/17 18:59 Urine Protein Negative (NEGATIVE) 10/27/17 18:59 Urine Glucose (UA) Negative (NEGATIVE) 10/27/17 18:59 Urine Ketones Negative (NEGATIVE) 10/27/17 18:59 Urine Blood 2+ (NEGATIVE) H 10/27/17 18:59 Urine Nitrite Negative (NEGATIVE) 10/27/17 18:59 Urine Bilirubin Negative (<2.0 mg/dL) 10/27/17 18:59 Urine Urobilinogen 2.0 mg/dL (0.2-1.0) 10/27/17 18:59 Ur Leukocyte Esterase Negative (NEGATIVE) 10/27/17 18:59 Urine WBC (Auto) <1 /hpf (3-5) 10/27/17 18:59 Urine RBC (Auto) 23 /hpf (0-3) 10/27/17 18:59 Calcium Oxalate Crystal Rare /hpf (NONE SEEN) 10/27/17 18:59 Urine Mucus Rare 10/27/17 18:59 RPR Titer Nonreactive (NONREACTIVE) 10/28/17 06:00 Assessment: 10/28/17 12:13 WITHDRAWAL SYMPTOM Plan: CONTINUE DETOX,ENCOURAGE ORAL FLUID,REPEAT UA FOR MICROSCOPIC HEMATURIA,INITIAL GLUCOSE IS 122, FASTING GLUCOSE IN AM
--- NOTE | 2017-10-28 15:32 | EKG ---
Test Reason : Blood Pressure : / mmHG Vent. Rate : 061 BPM Atrial Rate : 061 BPM P-R Int : 186 ms QRS Dur : 092 ms QT Int : 396 ms P-R-T Axes : 077 068 051 degrees QTc Int : 398 ms SINUS RHYTHM WITH MARKED SINUS ARRHYTHMIA INCOMPLETE RIGHT BUNDLE BRANCH BLOCK BORDERLINE ECG WHEN COMPARED WITH ECG OF 27-OCT-2017 17:48, NO SIGNIFICANT CHANGE WAS FOUND Confirmed by J CARLOS ZUNIGA, ANN ([id number]) on 10/28/2017 3:31:50 PM Referred By: Confirmed By:ANN WHITMAN MD
[2017-10-28 16:56] LABS: URINE APPEARANCE CLEAR; URINE BILIRUBIN NEGATIVE (<2.0 mg/dL); URINE BLOOD NEGATIVE (NEGATIVE); URINE COLOR LTYELLOW; URINE GLUCOSE (UA) NEGATIVE (NEGATIVE); URINE KETONE NEGATIVE (NEGATIVE); URINE LEUK ESTERASE NEGATIVE (NEGATIVE); URINE NITRITE NEGATIVE (NEGATIVE); URINE PROTEIN NEGATIVE (NEGATIVE); URINE UROBILINOGEN NEGATIVE mg/dL (0.2-1.0)
[2017-10-28] MEDS: MELATONIN 5 MG TABLETS PO PRN (22:10)
[2017-10-28] MEDS: THIAMINE HCL 100 MG TABLET (FP) PO SCH (22:11)
[2017-10-29] MEDS: chlordiazePOXIDE HCL 25 MG CAPSULE PO SCH ×2 (05:18→10:28)
--- NOTE | 2017-10-29 10:04 | PN ---
S CIWA - CIWA Score Nausea/Vomitin Muscle Tremors: 3 Anxiety: 2 Agitation: 2 Paroxysmal Sweats: 1-Minimal Palms Moist Orientation: 0-Oriented Tacttile Disturbances: 1-Very Mild Itch/Numbness Auditory Disturbances: 1-Very Mild Visual Disturbances: 0-None Headache: 2-Mild CIWA-Ar Total Score: 14 BHS COWS - Scale Resting Pulse: 0= [place] 80 or Below Sweatin= Chills/Flushing Restless Observation: 3= Extraneous Movement Pupil Size: 1= Pupils >than Normal Bone or Joint Aches: 2= Severe Diffuse Aches Runny Nose/ Eye Tearin= Runny Nose/Eyes GI Upset > 30mins: 2= Nausea/Diarrhea Tremor Observation of Outstretched Hands: 2= Slight Tremor Visible Yawning Observation: 1= 1-2x During Session Anxiety or Irritability: 2=Irritable/Anxious Goose Flesh Skin: 0=Smooth Skin COWS Score: 16 S Progress Note (SOAP) Subjective: ALERT,IRRITABLE,ANXIOUS,INTERRUPTED SLEEP,TREMOR,PAIN IN THE BACK Objective: 10/29/17 10:04 Vital Signs Temperature 98.8 F 10/29/17 09:59 Pulse Rate 60 10/29/17 09:59 Respiratory Rate 18 10/29/17 09:59 Blood Pressure 155/79 10/29/17 09:59 O2 Sat by Pulse Oximetry (%) 10/29/17 10:04 Laboratory Results - last 24 hr 10/28/17 10/28/17 10/28/17 06:00 06:00 06:00 WBC 4.7 RBC 3.88 L Hgb 12.4 Hct 36.8 MCV 94.8 MCH 31.8 MCHC 33.5 RDW 13.9 Plt Count 270 D MPV 7.7 Sodium 140 Potassium 4.2 Chloride 107 Carbon Dioxide 29 Anion Gap 4 L BUN 17 D Creatinine 1.3 D Creat Clearance w eGFR 58.43 Random Glucose 122 H D Calcium 8.4 L Total Bilirubin 0.3 D AST 25 D ALT 27 D Alkaline Phosphatase 73 D Total Protein 6.5 Albumin 3.4 D Urine Color Urine Appearance Urine pH Ur Specific Varney Urine Protein Urine Glucose (UA) Urine Ketones Urine Blood Urine Nitrite Urine Bilirubin Urine Urobilinogen Ur Leukocyte Esterase RPR Titer Nonreactive 10/28/17 14:30 WBC RBC Hgb Hct MCV MCH MCHC RDW Plt Count MPV Sodium Potassium Chloride Carbon Dioxide Anion Gap BUN Creatinine Creat Clearance w eGFR Random Glucose Calcium Total Bilirubin AST ALT Alkaline Phosphatase Total Protein Albumin Urine Color Ltyellow Urine Appearance Clear Urine pH 7.0 Ur Specific Varney 1.015 Urine Protein Negative Urine Glucose (UA) Negative Urine Ketones Negative Urine Blood Negative Urine Nitrite Negative Urine Bilirubin Negative Urine Urobilinogen Negative Ur Leukocyte Esterase Negative RPR Titer Assessment: 10/29/17 10:05 WITHDRAWAL SYMPTOM Plan: CONTINUE DETOX
[2017-10-29] MEDS: METHADONE HCL 5 MG TABLET (FOR DETOX USE ONLY) PO SCH (10:28)
[2017-10-29] MEDS: TOLNAFTATE 1% CREAM 15 GM TUBE TP SCH ×2 (10:28→22:30)
[2017-10-29] MEDS: PRENATAL VITAMINS W/ FOLIC ACID TABLET (FP) PO SCH (10:28)
[2017-10-29] MEDS ORDERED: NICOTINE POLACRILEX 2 MG GUM BUC PRN (10:55)
[2017-10-29] MEDS: chlordiazePOXIDE 5 MG CAPSULE PO SCH ×2 (17:16→22:31)
[2017-10-29] MEDS: MELATONIN 5 MG TABLETS PO PRN (22:31)
[2017-10-29] MEDS: THIAMINE HCL 100 MG TABLET (FP) PO SCH (22:31)
[2017-10-30] MEDS: chlordiazePOXIDE 5 MG CAPSULE PO SCH ×2 (05:44→10:44)
[2017-10-30] MEDS: METHADONE HCL 5 MG TABLET (FOR DETOX USE ONLY) PO SCH (10:44)
[2017-10-30] MEDS: TOLNAFTATE 1% CREAM 15 GM TUBE TP SCH ×2 (10:44→22:16)
[2017-10-30] MEDS: PRENATAL VITAMINS W/ FOLIC ACID TABLET (FP) PO SCH (10:44)
--- NOTE | 2017-10-30 11:17 | PN ---
S Progress Note (SOAP) Subjective: ALERT,IRRITABLE,ANXIOUS,INTERRUPTED SLEEP,PAIN IN THE BODY Objective: 10/30/17 11:16 Vital Signs Temperature 95.8 F L 10/30/17 10:00 Pulse Rate 74 10/30/17 10:00 Respiratory Rate 18 10/30/17 10:00 Blood Pressure 129/82 10/30/17 10:00 O2 Sat by Pulse Oximetry (%) Assessment: 10/30/17 11:16 WITHDRAWAL SYMPTOM Plan: CONTINUE DETOX,VISTARIL 50 MGS PO HS FOR INSOMNIA
[2017-10-30] MEDS: chlordiazePOXIDE HCL 10 MG CAPSULE PO SCH ×2 (17:29→22:16)
[2017-10-30] MEDS ORDERED: hydrOXYzine PAMOATE 50 MG CAPSULE (FP) PO SCH (22:00)
[2017-10-30] MEDS: THIAMINE HCL 100 MG TABLET (FP) PO SCH (22:16)
[2017-10-31] MEDS: chlordiazePOXIDE HCL 10 MG CAPSULE PO SCH (05:46)
[2017-10-31 06:13] VITALS: BP 138/75; PULSE 63; TEMP 97.5
--- NOTE | 2017-10-31 09:07 | PN ---
[facility] Progress Note (SOAP) Subjective: ALERT,NO COMPLAINT Objective: 10/31/17 09:04 Vital Signs Temperature 97.5 F L 10/31/17 06:12 Pulse Rate 63 10/31/17 06:12 Respiratory Rate 18 10/31/17 06:12 Blood Pressure 138/75 10/31/17 06:12 O2 Sat by Pulse Oximetry (%) PATIENT IS STABLE FOR DISCHARGE TODAY NO WITHDRAWAL SYMPTOM Assessment: 10/31/17 09:06 STABLE FOR DISCHARGE Plan: DISCHARGE TODAY,FOLLOW UP WITH AFTER CARE PROGRAM ARRANGEMENT
--- NOTE | 2017-10-31 09:08 | DS ---
[facility] Detox Discharge Summary Admission Date: 10/27/17 Discharge Date: 10/31/17 - History Present History: Alcohol Dependence, Cocaine Dependence, Opioid Dependence Additional Comments: PATIENT WILL FOLLOW UP WITH CLINIC AT [facility] FOR MICROSCOPIC HEMATURIA AND AFTER CARE PROGRAM ARRANGEMENT Pertinent Past History: NICOTINE DEPENDENCE - Physical Exam Results Vital Signs: Vital Signs Temperature 97.5 F L 10/31/17 06:12 Pulse Rate 63 10/31/17 06:12 Respiratory Rate 18 10/31/17 06:12 Blood Pressure 138/75 10/31/17 06:12 O2 Sat by Pulse Oximetry (%) Pertinent Admission Physical Exam Findings: WITHDRAWAL SIGNS AND SYMPTOM Laboratory Last Values WBC 4.7 K/mm3 (4.0-10.0) 10/28/17 06:00 RBC 3.88 M/mm3 (4.00-5.60) L 10/28/17 06:00 Hgb 12.4 GM/dL (11.7-16.9) 10/28/17 06:00 Hct 36.8 % (35.4-49) 10/28/17 06:00 MCV 94.8 fl (80-96) 10/28/17 06:00 MCH 31.8 pg (25.7-33.7) 10/28/17 06:00 MCHC 33.5 g/dl (32.0-35.9) 10/28/17 06:00 RDW 13.9 % (11.9-15.9) 10/28/17 06:00 Plt Count 270 K/MM3 (134-434) D 10/28/17 06:00 MPV 7.7 fl (7.5-11.1) 10/28/17 06:00 Sodium 140 mmol/L (136-145) 10/28/17 06:00 Potassium 4.2 mmol/L (3.5-5.1) 10/28/17 06:00 Chloride 107 mmol/L (98-107) 10/28/17 06:00 Carbon Dioxide 29 mmol/L (21-32) 10/28/17 06:00 Anion Gap 4 (8-16) L 10/28/17 06:00 BUN 17 mg/dL (7-18) D 10/28/17 06:00 Creatinine 1.3 mg/dL (0.7-1.3) D 10/28/17 06:00 Creat Clearance w eGFR 58.43 (>60) 10/28/17 06:00 Random Glucose 122 mg/dL (74-106) H D 10/28/17 06:00 Calcium 8.4 mg/dL (8.5-10.1) L 10/28/17 06:00 Total Bilirubin 0.3 mg/dL (0.2-1.0) D 10/28/17 06:00 AST 25 U/L (15-37) D 10/28/17 06:00 ALT 27 U/L (12-78) D 10/28/17 06:00 Alkaline Phosphatase 73 U/L (45-117) D 10/28/17 06:00 Total Protein 6.5 g/dl (6.4-8.2) 10/28/17 06:00 Albumin 3.4 g/dl (3.4-5.0) D 10/28/17 06:00 Urine Color Ltyellow 10/28/17 14:30 Urine Appearance Clear 10/28/17 14:30 Urine pH 7.0 (5.0-8.0) 10/28/17 14:30 Ur Specific Adin 1.015 (1.001-1.035) 10/28/17 14:30 Urine Protein Negative (NEGATIVE) 10/28/17 14:30 Urine Glucose (UA) Negative (NEGATIVE) 10/28/17 14:30 Urine Ketones Negative (NEGATIVE) 10/28/17 14:30 Urine Blood Negative (NEGATIVE) 10/28/17 14:30 Urine Nitrite Negative (NEGATIVE) 10/28/17 14:30 Urine Bilirubin Negative (<2.0 mg/dL) 10/28/17 14:30 Urine Urobilinogen Negative mg/dL (0.2-1.0) 10/28/17 14:30 Ur Leukocyte Esterase Negative (NEGATIVE) 10/28/17 14:30 Urine WBC (Auto) <1 /hpf (3-5) 10/27/17 18:59 Urine RBC (Auto) 23 /hpf (0-3) 10/27/17 18:59 Calcium Oxalate Crystal Rare /hpf (NONE SEEN) 10/27/17 18:59 Urine Mucus Rare 10/27/17 18:59 RPR Titer Nonreactive (NONREACTIVE) 10/28/17 06:00 Vital Signs Temperature 97.5 F L 04/28/18 06:12 Pulse Rate 63 10/31/17 06:12 Respiratory Rate 18 10/31/17 06:12 Blood Pressure 138/75 10/31/17 06:12 O2 Sat by Pulse Oximetry (%) - Treatment Hospital Course: Detox Protocol Followed, Detoxed Safely, Responded well, Discharged Condition Good Patient has Accepted a Rehab Referral to: DECLINED - Medication Discharge Medications: Ambulatory Orders NK [No Known Home Medication] 04/29/17 - Diagnosis (1) Opioid dependence with withdrawal Current Visit: Yes Status: Acute (2) Microscopic hematuria Current Visit: Yes Status: Acute (3) Alcohol dependence with uncomplicated withdrawal Current Visit: Yes Status: Acute (4) Dehydration Current Visit: Yes Status: Acute (5) Tinea pedis Current Visit: Yes Status: Acute Qualifiers: Laterality: bilateral Qualified Code(s): B35.3 - Tinea pedis (6) Cocaine dependence, uncomplicated Current Visit: Yes Status: Chronic (7) Nicotine dependence Current Visit: Yes Status: Chronic Qualifiers: Nicotine product type: cigarettes Substance use status: uncomplicated Qualified Code(s): F17.210 - Nicotine dependence, cigarettes, uncomplicated (8) History of migraine headaches Current Visit: Yes Status: Suspected - AMA Did Patient Leave Against Medical Advice: No
[2017-10-31] MEDS: PRENATAL VITAMINS W/ FOLIC ACID TABLET (FP) PO SCH (09:25)
[2017-10-31] MEDS ORDERED: METHADONE HCL 10 MG TABLET (FOR DETOX USE ONLY) PO SCH (10:00)
[2017-11-01] MEDS ORDERED: METHADONE HCL 5 MG TABLET (FOR DETOX USE ONLY) PO SCH (06:00)
== END 2017-10-31 09:28 | disposition home or self-care (01) | DRG 773 ==
LOC: YASAS 11:34 → Y6N 15:52
PROVIDERS: ADMIT Internal Medicine; ATTEND Internal Medicine
PROC: HZ2ZZZZ Detoxification Services for Substance Abuse Treatment (ICD-10-PCS; principal; 2017-10-27)
DX: F11.23 Opioid dependence with withdrawal (principal); F10.230 Alcohol dependence with withdrawal, uncomplicated; F14.20 Cocaine dependence, uncomplicated; F17.210 Nicotine dependence, cigarettes, uncomplicated; E86.0 Dehydration; R31.29 Other microscopic hematuria; B35.3 Tinea pedis
CPT/HCPCS: 36415; 80053; 81003; 81015; 85027; 86593; 93005; 93010

== ENCOUNTER 2018-08-27 11:20 | Inpatient (IN) | payer OTHER ==
[2018-08-27 11:40] VITALS: BMI 23.1
--- NOTE | 2018-08-27 13:28 | HP ---
COWS - Scale Resting Pulse: 0= [place] 80 or Below Sweatin= Chills/Flushing Restless Observation: 3= Extraneous Movement Pupil Size: 1= Pupils >than Normal Bone or Joint Aches: 2= Severe Diffuse Aches Runny Nose/ Eye Tearin= Runny Nose/Eyes GI Upset > 30mins: 2= Nausea/Diarrhea Tremor Observation: 2= Slight Tremor Visible Yawning Observation: 1= 1-2x During Session Anxiety or Irritability: 2=Irritable/Anxious Goose Flesh Skin: 0=Smooth Skin COWS Score: 16 CIWA Score Nausea/Vomitin Muscle Tremors: 2 Anxiety: 2 Agitation: 2 Paroxysmal Sweats: 1-Minimal Palms Moist Orientation: 0-Oriented Tacttile Disturbances: 1-Very Mild Itch/Numbness Auditory Disturbances: 1-Very Mild Visual Disturbances: 0-None Headache: 2-Mild CIWA-Ar Total Score: 13 - Admission Criteria [facility] Guidelines: Admission for Medically Managed Detox: Requires at least one of the followin. CIWA greater than 12 2. Seizures within the past 24 hours 3. Delirium tremens within the past 24 hours 4. Hallucinations within the past 24 hours 5. Acute intervention needed for co occurring medical disorder 6. Acute intervention needed for co occurring psychiatric disorder 7. Severe withdrawal that cannot be handled at a lower level of care (continued vomiting, continued diarrhea, abnormal vital signs) requiring intravenous medication and/or fluids 8. Patient presents the following: CIWA greater than 12 Admission Criteria Met: Admission criteria met Admission ROS [facility] Chief Complaint: i need help to stop using heroin,alcohol,cocaine and marijuana Allergies/Adverse Reactions: Allergies Allergy/AdvReac Type Severity Reaction Status Date / Time No Known Allergies Allergy Verified 10/27/17 14:11 History of Present Illness: this 53 years old male with heroin,alcohol,cocaine and marijuana dependence, seeking detox,withdrawal symptom, multiple admissions in detox,last 8 to 10/31/17 weight loss nicotine dependence longest period of sobriety 1 year low back pain plan for rehab after detox tinea pedis Exam Limitations: No Limitations - Ebola screening Have you traveled outside of the country in the last 21 days: No Have you had contact with anyone from an Ebola affected area: No Have you been sick,other than usual withdrawal symptoms: No Do you have a fever: No - Review of Systems Constitutional: Chills, Loss of Appetite, Malaise, Night Sweats, Changes in sleep, Weakness, Unintentional Wgt. Loss EENT: reports: Tearing, Nose Congestion Respiratory: reports: No Symptoms reported Cardiac: reports: No Symptoms Reported GI: reports: Diarrhea, Nausea, Poor Appetite, Indigestion, Abdominal cramping : reports: No Symptoms Reported Musculoskeletal: reports: Back Pain, Muscle Pain Integumentary: reports: Dryness Neuro: reports: Headache, Tremors Endocrine: reports: No Symptoms Reported Hematology: reports: No Symptoms Reported Psychiatric: reports: No Sypmtoms Reported, Judgement Intact, Mood/Affect Appropiate, Orientated x3 Patient History - Patient Medical History Hx Anemia: No Hx Asthma: No Hx Chronic Obstructive Pulmonary Disease (COPD): No Hx Cancer: No Hx Cardiac Disorders: No Hx Congestive Heart Failure: No Hx Hypertension: No Hx Hypercholesterolemia: No Hx Pacemaker: No HX Cerebrovascular Accident: No Hx Seizures: No Hx Dementia: No Hx Diabetes: No Hx Gastrointestinal Disorders: No Hx Liver Disease: No Hx Genitourinary Disorders: No Hx Sexually Transmitted Disorders: No Hx Renal Disease (ESRD): No Hx Thyroid Disease: No Hx Human Immunodeficiency Virus (HIV): No (Last Tested: 08/24 negative) Hx Hepatitis C: No (Last Tested: 04/2017: NEGATIVE.) Hx Depression: No Hx Suicide Attempt: No (PATIENT DENIES CURRENT SI / HI.) Hx Bipolar Disorder: No Hx Schizophrenia: No Other Medical History: no suicidal,no homicidal - Patient Surgical History Past Surgical History: No Hx Neurologic Surgery: No Hx Cataract Extraction: No Hx Cardiac Surgery: No Hx Lung Surgery: No Hx Breast Surgery: No Hx Breast Biopsy: No Hx Abdominal Surgery: No Hx Appendectomy: No Hx Cholecystectomy: No Hx Genitourinary Surgery: No Hx Section: No Hx Orthopedic Surgery: No Other Surgical History: DENIES. Anesthesia Reaction: No - PPD History Previous Implant?: Yes Documented Results: Negative w/o proof Implanted On Prior [facility] Admission?: Yes Date: 05/01/17 Results: 0 MM PPD to be Administered?: Yes - Smoking Cessation Smoking history: Current every day smoker Have you smoked in the past 12 months: Yes Aproximately how many cigarettes per day: 20 Cigars Per Day: 0 Hx Chewing Tobacco Use: No Initiated information on smoking cessation: Yes 'Breaking Loose' booklet given: 08/27/18 - Substance & Tx. History Hx Alcohol Use: Yes Hx Substance Use: Yes Substance Use Type: Alcohol, Cocaine, Heroin, Marijuana - Substances Abused Heroin Route: Inhalation Frequency: Daily Amount used: 10 bags Age of first use: 27 Date of Last Use: 08/27/18 Alcohol Route: Oral Frequency: Daily Amount used: 1 pint vodka Age of first use: 27 Date of Last Use: 08/27/18 Cocaine Route: Inhalation Frequency: 1-2 times per week Amount used: 1 sniff Age of first use: 27 Date of Last Use: 08/26/18 Marijuana/Hashish Route: Smoking Frequency: 1-2 times per week Amount used: 1 joint Age of first use: 27 Date of Last Use: 08/26/18 Family Disease History - Family Disease History Family Disease History: Other: Mother (Seizures.) Admission Physical Exam [facility] - Vital Signs Vital Signs: Vital Signs - 24 hr 08/27/18 11:36 Temperature 97.0 F L Pulse Rate 60 Respiratory 18 Rate Blood Pressure 133/86 - Physical General Appearance: Yes: Moderate Distress, Tremorous, Irritable, Sweating, Anxious HEENTM: Yes: Normal ENT Inspection, MILA, Pharynx Normal Respiratory: Yes: Lungs Clear, Normal Breath Sounds, No Respiratory Distress Neck: Yes: Within Normal Limits, Supple, Trachea in good position Breast: Yes: Within Normal Limits Cardiology: Yes: Within Normal Limits, Regular Rhythm, Regular Rate, S1, S2 Abdominal: Yes: Normal Bowel Sounds, Non Tender, Soft, Organomegaly Genitourinary: Yes: Within Normal Limits Back: Yes: Muscle Spasm Musculoskeletal: Yes: full range of Motion, Back pain, Joint Stiffness, Muscle Pain Extremities: Yes: Tremors Neurological: Yes: annealer II-XII NML intact, Fully Oriented, Alert, Motor Strength 5/5 Integumentary: Yes: Dry Lymphatic: Yes: Within Normal Limits - Diagnostic (1) Opioid dependence with withdrawal Current Visit: No Status: Acute (2) Alcohol dependence with uncomplicated withdrawal Current Visit: No Status: Acute (3) Cannabis abuse Current Visit: No Status: Acute (4) Cocaine dependence Current Visit: No Status: Acute (5) Dehydration Current Visit: No Status: Acute (6) Nicotine dependence Current Visit: No Status: Chronic Qualifiers: Nicotine product type: cigarettes Substance use status: uncomplicated Qualified Code(s): F17.210 - Nicotine dependence, cigarettes, uncomplicated (7) Weight loss Current Visit: No Status: Chronic (8) History of migraine headaches Current Visit: No Status: Suspected (9) Tinea pedis Current Visit: No Status: Acute Qualifiers: Laterality: bilateral Qualified Code(s): B35.3 - Tinea pedis (10) Arthritis of carpometacarpal (CMC) joint of right thumb Current Visit: Yes Status: Acute Cleared for Admission [facility] - Detox or Rehab [facility] Level of Care: Medically Managed Detox Regimen/Protocol: Methadone/Librium [facility] Breath Alcohol Content Breath Alcohol Content: 0.020 Urine Drug Screen - Results Drug Screen Negative: No Urine Drug Screen Results: THC-Marijuana, JAIR-Cocaine, OPI-Opiates, MTD- Methadone, FEN-Fentanyl Inpatient Rehab Admission - Rehab Decision to Admit Inpatient rehab admission?: No
[2018-08-27] MEDS ORDERED: ACETAMINOPHEN 325 MG TABLET (FP) PO PRN (13:39)
[2018-08-27] MEDS ORDERED: chlordiazePOXIDE HCL 25 MG CAPSULE PO PRN (13:39)
[2018-08-27] MEDS ORDERED: P-EPHED 60MG/TRIPROLIDI 2.5MG TABLET PO PRN (13:39)
[2018-08-27] MEDS ORDERED: LOPERAMIDE HCL 2 MG CAPSULE PO PRN (13:39)
[2018-08-27] MEDS ORDERED: IBUPROFEN 400 MG TABLET (FP) PO PRN (13:39)
[2018-08-27] MEDS ORDERED: MENTHOL/PHENOL 1 EACH UD MM PRN (13:39)
[2018-08-27] MEDS ORDERED: MAG HYDROX/AL HYDROX/SIMETH 30 ML UNIT-DOSE CUP PO PRN (13:39)
[2018-08-27] MEDS ORDERED: MAGNESIUM CITRATE 300 ML BOTTLE PO PRN (13:39)
[2018-08-27] MEDS ORDERED: MAGNESIUM HYDROX 2400MG/30ML ORAL SUSPENSION 30 ML CUP PO PRN (13:39)
[2018-08-27] MEDS ORDERED: hydrOXYzine PAMOATE 25 MG CAPSULE (FP) PO PRN (13:39)
[2018-08-27] MEDS ORDERED: guaiFENesin/D-METHORPHAN HB 10 ML UNIT-DOSE CUPS PO PRN (13:39)
[2018-08-27] MEDS ORDERED: METHADONE HCL 10 MG TABLET (FOR DETOX USE ONLY) PO ONE ×2 (14:30→23:00)
[2018-08-27] MEDS: chlordiazePOXIDE HCL 25 MG CAPSULE PO SCH ×2 (17:17→22:01)
[2018-08-27] MEDS: THIAMINE HCL 100 MG TABLET (FP) PO SCH (22:00)
[2018-08-28] MEDS: MELATONIN 5 MG TABLETS PO PRN ×2 (00:22→22:06)
[2018-08-28] MEDS: chlordiazePOXIDE HCL 25 MG CAPSULE PO SCH ×4 (05:13→22:05)
[2018-08-28] MEDS ORDERED: METHADONE HCL 10 MG TABLET (FOR DETOX USE ONLY) PO SCH (10:00)
[2018-08-28] MEDS: PRENATAL VITAMINS W/ FOLIC ACID TABLET (FP) PO SCH (10:03)
[2018-08-28 10:25] LABS: HEMATOCRIT 33.8 % (35.4-49); HEMOGLOBIN 11.4 GM/dL (11.7-16.9); MCH 30.9 pg (25.7-33.7); MCHC 33.9 g/dl (32.0-35.9); MEAN CELL VOLUME 91.1 fl (80-96); MEAN PLT VOLUME 7.8 fl (7.5-11.1); PLATELET COUNT 295 K/MM3 (134-434); RDW 13.9 % (11.9-15.9); WHITE BLOOD COUNT 5.4 K/mm3 (4.0-10.0)
[2018-08-28 10:45] LABS: ALBUMIN 3.8 g/dl (3.4-5.0); ALK PHOS 75 U/L (45-117); ANION GAP 5 MMOL/L (8-16); BILIRUBIN,TOTAL 0.3 mg/dL (0.2-1); BLOOD UREA NITROGEN 15 mg/dL (7-18); CALCIUM 9.1 mg/dL (8.5-10.1); CHLORIDE 104 mmol/L (98-107); CO2 28 mmol/L (21-32); CREATININE 1.2 mg/dL (0.55-1.3); GLUCOSE,RANDOM 93 mg/dL (74-106); POTASSIUM 4.6 mmol/L (3.5-5.1); SGOT/AST 28 U/L (15-37); SGPT/ALT 38 U/L (13-61); SODIUM 138 mmol/L (136-145); TOT PROT 6.9 g/dl (6.4-8.2)
--- NOTE | 2018-08-28 18:40 | PN ---
[facility] CIWA - CIWA Score Nausea/Vomitin-No Nausea/No Vomiting Muscle Tremors: 3 Anxiety: 2 Agitation: 4-Moderately Restless Paroxysmal Sweats: 3 Orientation: 0-Oriented Tacttile Disturbances: 0-None Auditory Disturbances: 0-None Visual Disturbances: 0-None Headache: 0-None Present CIWA-Ar Total Score: 12 [facility] COWS - Scale Resting Pulse: 0= [place] 80 or Below Sweatin=Flushed/Facial Moisture Restless Observation: 1= Difficult to Sit Still Pupil Size: 0= Normal to Room Light Bone or Joint Aches: 1= Mild Discomfort Runny Nose/ Eye Tearin= Nasal Congestion GI Upset > 30mins: 0= None Tremor Observation of Outstretched Hands: 2= Slight Tremor Visible Yawning Observation: 1= 1-2x During Session Anxiety or Irritability: 1=Feels Anxious/Irritable Goose Flesh Skin: 0=Smooth Skin COWS Score: 9 [facility] Progress Note (SOAP) Subjective: shakes abd discomfort Objective: 08/28/18 18:38 A & ox 3 in no distress Noted ambulating steadily on unit Vital Signs Temperature 99.1 F 08/28/18 17:30 Pulse Rate 62 08/28/18 17:30 Respiratory Rate 16 08/28/18 17:30 Blood Pressure 125/72 08/28/18 17:30 O2 Sat by Pulse Oximetry (%) Laboratory Last Values WBC 5.4 K/mm3 (4.0-10.0) 08/28/18 05:35 RBC 3.70 M/mm3 (4.00-5.60) L 08/28/18 05:35 Hgb 11.4 GM/dL (11.7-16.9) L 08/28/18 05:35 Hct 33.8 % (35.4-49) L 08/28/18 05:35 MCV 91.1 fl (80-96) 08/28/18 05:35 MCH 30.9 pg (25.7-33.7) 08/28/18 05:35 MCHC 33.9 g/dl (32.0-35.9) 08/28/18 05:35 RDW 13.9 % (11.9-15.9) 08/28/18 05:35 Plt Count 295 K/MM3 (134-434) 08/28/18 05:35 MPV 7.8 fl (7.5-11.1) 08/28/18 05:35 Sodium 138 mmol/L (136-145) 08/28/18 05:35 Potassium 4.6 mmol/L (3.5-5.1) 08/28/18 05:35 Chloride 104 mmol/L (98-107) 08/28/18 05:35 Carbon Dioxide 28 mmol/L (21-32) 08/28/18 05:35 Anion Gap 5 MMOL/L (8-16) L 08/28/18 05:35 BUN 15 mg/dL (7-18) 08/28/18 05:35 Creatinine 1.2 mg/dL (0.55-1.3) 08/28/18 05:35 Creat Clearance w eGFR > 60 (>60) 08/28/18 05:35 Random Glucose 93 mg/dL (74-106) 08/28/18 05:35 Calcium 9.1 mg/dL (8.5-10.1) 08/28/18 05:35 Total Bilirubin 0.3 mg/dL (0.2-1) 08/28/18 05:35 AST 28 U/L (15-37) 08/28/18 05:35 ALT 38 U/L (13-61) 08/28/18 05:35 Alkaline Phosphatase 75 U/L (45-117) 08/28/18 05:35 Total Protein 6.9 g/dl (6.4-8.2) 08/28/18 05:35 Albumin 3.8 g/dl (3.4-5.0) 08/28/18 05:35 RPR Titer Nonreactive (NONREACTIVE) 08/28/18 05:35 slightly low H & H withdrawal sx Continue detox ENsure BID
[2018-08-28 19:27] LABS: URINE APPEARANCE CLEAR; URINE BILIRUBIN NEGATIVE (<2.0 mg/dL); URINE COLOR LTYELLOW; URINE GLUCOSE (UA) NEGATIVE (NEGATIVE); URINE KETONE NEGATIVE (NEGATIVE); URINE LEUK ESTERASE NEGATIVE (NEGATIVE); URINE NITRITE NEGATIVE (NEGATIVE); URINE PROTEIN NEGATIVE (NEGATIVE); URINE UROBILINOGEN NEGATIVE mg/dL (0.2-1.0)
[2018-08-28] MEDS: THIAMINE HCL 100 MG TABLET (FP) PO SCH (22:05)
[2018-08-28] MEDS: NICOTINE POLACRILEX 2 MG GUM BC PRN (22:31)
[2018-08-29] MEDS: chlordiazePOXIDE HCL 25 MG CAPSULE PO SCH ×2 (05:32→10:03)
[2018-08-29] MEDS: PRENATAL VITAMINS W/ FOLIC ACID TABLET (FP) PO SCH (10:03)
[2018-08-29] MEDS: METHADONE HCL 5 MG TABLET (FOR DETOX USE ONLY) PO SCH (10:03)
[2018-08-29] MEDS: TOLNAFTATE 1% CREAM 15 GM TUBE TP SCH ×2 (10:05→22:03)
--- NOTE | 2018-08-29 14:16 | PN ---
[facility] CIWA - CIWA Score Nausea/Vomitin-No Nausea/No Vomiting Muscle Tremors: 2 Anxiety: 1-Mildly Anxious Agitation: 1-Slight > Activity Paroxysmal Sweats: 1-Minimal Palms Moist Orientation: 1-Uncertain about Date Tacttile Disturbances: 0-None Auditory Disturbances: 0-None Visual Disturbances: 0-None Headache: 1-Very Mild CIWA-Ar Total Score: 7 S COWS - Scale Resting Pulse: 1= [place] 81-100 Sweatin= Chills/Flushing Restless Observation: 0= Sits Still Pupil Size: 0= Normal to Room Light Bone or Joint Aches: 1= Mild Discomfort Runny Nose/ Eye Tearin= Nasal Congestion GI Upset > 30mins: 1= Stomach Cramp Tremor Observation of Outstretched Hands: 1= Tremor [place], Not Seen Yawning Observation: 0= None Anxiety or Irritability: 0= None Goose Flesh Skin: 0=Smooth Skin COWS Score: 6 S Progress Note (SOAP) Subjective: body aches tremor anxiety but able to sleep through the night well rested Objective: 08/29/18 14:23 Vital Signs Temperature 97.3 F L 08/29/18 13:21 Pulse Rate 80 08/29/18 13:21 Respiratory Rate 18 08/29/18 13:21 Blood Pressure 133/78 08/29/18 13:21 O2 Sat by Pulse Oximetry (%) Laboratory Last Values WBC 5.4 K/mm3 (4.0-10.0) 08/28/18 05:35 RBC 3.70 M/mm3 (4.00-5.60) L 08/28/18 05:35 Hgb 11.4 GM/dL (11.7-16.9) L 08/28/18 05:35 Hct 33.8 % (35.4-49) L 08/28/18 05:35 MCV 91.1 fl (80-96) 08/28/18 05:35 MCH 30.9 pg (25.7-33.7) 08/28/18 05:35 MCHC 33.9 g/dl (32.0-35.9) 08/28/18 05:35 RDW 13.9 % (11.9-15.9) 08/28/18 05:35 Plt Count 295 K/MM3 (134-434) 08/28/18 05:35 MPV 7.8 fl (7.5-11.1) 08/28/18 05:35 Sodium 138 mmol/L (136-145) 08/28/18 05:35 Potassium 4.6 mmol/L (3.5-5.1) 08/28/18 05:35 Chloride 104 mmol/L (98-107) 08/28/18 05:35 Carbon Dioxide 28 mmol/L (21-32) 08/28/18 05:35 Anion Gap 5 MMOL/L (8-16) L 08/28/18 05:35 BUN 15 mg/dL (7-18) 08/28/18 05:35 Creatinine 1.2 mg/dL (0.55-1.3) 08/28/18 05:35 Creat Clearance w eGFR > 60 (>60) 08/28/18 05:35 Random Glucose 93 mg/dL (74-106) 08/28/18 05:35 Calcium 9.1 mg/dL (8.5-10.1) 08/28/18 05:35 Total Bilirubin 0.3 mg/dL (0.2-1) 08/28/18 05:35 AST 28 U/L (15-37) 08/28/18 05:35 ALT 38 U/L (13-61) 08/28/18 05:35 Alkaline Phosphatase 75 U/L (45-117) 08/28/18 05:35 Total Protein 6.9 g/dl (6.4-8.2) 08/28/18 05:35 Albumin 3.8 g/dl (3.4-5.0) 08/28/18 05:35 Urine Color Ltyellow 08/28/18 09:33 Urine Appearance Clear 08/28/18 09:33 Urine pH 5.0 (5.0-8.0) D 08/28/18 09:33 Ur Specific [place] 1.020 (1.010-1.035) 08/28/18 09:33 Urine Protein Negative (NEGATIVE) 08/28/18 09:33 Urine Glucose (UA) Negative (NEGATIVE) 08/28/18 09:33 Urine Ketones Negative (NEGATIVE) 08/28/18 09:33 Urine Blood Negative (NEGATIVE) 08/28/18 09:33 Urine Nitrite Negative (NEGATIVE) 08/28/18 09:33 Urine Bilirubin Negative (<2.0 mg/dL) 08/28/18 09:33 Urine Urobilinogen Negative mg/dL (0.2-1.0) 08/28/18 09:33 Ur Leukocyte Esterase Negative (NEGATIVE) 08/28/18 09:33 RPR Titer Nonreactive (NONREACTIVE) 08/28/18 05:35 lab noted Assessment: 08/29/18 14:24 withdrawal sx Plan: continue detox
[2018-08-29] MEDS: chlordiazePOXIDE 5 MG CAPSULE PO SCH ×2 (17:50→22:04)
[2018-08-29] MEDS: NICOTINE POLACRILEX 2 MG GUM BC PRN (18:01)
[2018-08-29] MEDS: CLOTRIMAZOLE 1% CREAM 15 GM TUBE TP SCH (22:02)
[2018-08-29] MEDS: THIAMINE HCL 100 MG TABLET (FP) PO SCH (22:03)
[2018-08-29] MEDS: MELATONIN 5 MG TABLETS PO PRN (22:05)
[2018-08-30] MEDS: chlordiazePOXIDE 5 MG CAPSULE PO SCH ×2 (05:30→10:12)
[2018-08-30] MEDS: METHADONE HCL 5 MG TABLET (FOR DETOX USE ONLY) PO SCH (10:11)
[2018-08-30] MEDS: PRENATAL VITAMINS W/ FOLIC ACID TABLET (FP) PO SCH (10:12)
[2018-08-30] MEDS: TOLNAFTATE 1% CREAM 15 GM TUBE TP SCH ×2 (10:12→22:34)
[2018-08-30] MEDS: CLOTRIMAZOLE 1% CREAM 15 GM TUBE TP SCH ×2 (10:12→22:34)
[2018-08-30] MEDS: NICOTINE POLACRILEX 2 MG GUM BC PRN (10:17)
--- NOTE | 2018-08-30 13:07 | PN ---
[facility] CIWA - CIWA Score Nausea/Vomitin-No Nausea/No Vomiting Muscle Tremors: 1-None Visible, but [place] Anxiety: 1-Mildly Anxious Agitation: 1-Slight > Activity Paroxysmal Sweats: 1-Minimal Palms Moist Orientation: 0-Oriented Tacttile Disturbances: 0-None Auditory Disturbances: 0-None Visual Disturbances: 0-None Headache: 0-None Present CIWA-Ar Total Score: 4 S COWS - Scale Resting Pulse: 0= [place] 80 or Below Sweatin= Chills/Flushing Restless Observation: 0= Sits Still Pupil Size: 0= Normal to Room Light Bone or Joint Aches: 1= Mild Discomfort Runny Nose/ Eye Tearin= Nasal Congestion GI Upset > 30mins: 1= Stomach Cramp Tremor Observation of Outstretched Hands: 1= Tremor [place], Not Seen Yawning Observation: 0= None Anxiety or Irritability: 0= None Goose Flesh Skin: 0=Smooth Skin COWS Score: 5 S Progress Note (SOAP) Subjective: doing better mild tremor little sweating more energy social with peers Objective: 08/30/18 13:07 Vital Signs Temperature 97.5 F L 08/30/18 09:12 Pulse Rate 85 08/30/18 09:12 Respiratory Rate 18 08/30/18 09:12 Blood Pressure 134/84 08/30/18 09:12 O2 Sat by Pulse Oximetry (%) Laboratory Last Values WBC 5.4 K/mm3 (4.0-10.0) 08/28/18 05:35 RBC 3.70 M/mm3 (4.00-5.60) L 08/28/18 05:35 Hgb 11.4 GM/dL (11.7-16.9) L 08/28/18 05:35 Hct 33.8 % (35.4-49) L 08/28/18 05:35 MCV 91.1 fl (80-96) 08/28/18 05:35 MCH 30.9 pg (25.7-33.7) 08/28/18 05:35 MCHC 33.9 g/dl (32.0-35.9) 08/28/18 05:35 RDW 13.9 % (11.9-15.9) 08/28/18 05:35 Plt Count 295 K/MM3 (134-434) 08/28/18 05:35 MPV 7.8 fl (7.5-11.1) 08/28/18 05:35 Sodium 138 mmol/L (136-145) 08/28/18 05:35 Potassium 4.6 mmol/L (3.5-5.1) 08/28/18 05:35 Chloride 104 mmol/L (98-107) 08/28/18 05:35 Carbon Dioxide 28 mmol/L (21-32) 08/28/18 05:35 Anion Gap 5 MMOL/L (8-16) L 08/28/18 05:35 BUN 15 mg/dL (7-18) 08/28/18 05:35 Creatinine 1.2 mg/dL (0.55-1.3) 08/28/18 05:35 Creat Clearance w eGFR > 60 (>60) 08/28/18 05:35 Random Glucose 93 mg/dL (74-106) 08/28/18 05:35 Calcium 9.1 mg/dL (8.5-10.1) 08/28/18 05:35 Total Bilirubin 0.3 mg/dL (0.2-1) 08/28/18 05:35 AST 28 U/L (15-37) 08/28/18 05:35 ALT 38 U/L (13-61) 08/28/18 05:35 Alkaline Phosphatase 75 U/L (45-117) 08/28/18 05:35 Total Protein 6.9 g/dl (6.4-8.2) 08/28/18 05:35 Albumin 3.8 g/dl (3.4-5.0) 08/28/18 05:35 Urine Color Ltyellow 08/28/18 09:33 Urine Appearance Clear 08/28/18 09:33 Urine pH 5.0 (5.0-8.0) D 08/28/18 09:33 Ur Specific [place] 1.020 (1.010-1.035) 08/28/18 09:33 Urine Protein Negative (NEGATIVE) 08/28/18 09:33 Urine Glucose (UA) Negative (NEGATIVE) 08/28/18 09:33 Urine Ketones Negative (NEGATIVE) 08/28/18 09:33 Urine Blood Negative (NEGATIVE) 08/28/18 09:33 Urine Nitrite Negative (NEGATIVE) 08/28/18 09:33 Urine Bilirubin Negative (<2.0 mg/dL) 08/28/18 09:33 Urine Urobilinogen Negative mg/dL (0.2-1.0) 08/28/18 09:33 Ur Leukocyte Esterase Negative (NEGATIVE) 08/28/18 09:33 RPR Titer Nonreactive (NONREACTIVE) 08/28/18 05:35 lab noted Assessment: 08/30/18 13:07 withdrawal sx Plan: continue detox
[2018-08-30] MEDS: chlordiazePOXIDE HCL 10 MG CAPSULE PO SCH ×2 (17:53→22:35)
[2018-08-30] MEDS: THIAMINE HCL 100 MG TABLET (FP) PO SCH (22:34)
[2018-08-30] MEDS: MELATONIN 5 MG TABLETS PO PRN (22:34)
[2018-08-31] MEDS: chlordiazePOXIDE HCL 10 MG CAPSULE PO SCH ×2 (05:40→10:21)
[2018-08-31] MEDS ORDERED: METHADONE HCL 10 MG TABLET (FOR DETOX USE ONLY) PO SCH (10:00)
[2018-08-31] MEDS: TOLNAFTATE 1% CREAM 15 GM TUBE TP SCH ×2 (10:22→22:06)
[2018-08-31] MEDS: CLOTRIMAZOLE 1% CREAM 15 GM TUBE TP SCH ×2 (10:22→22:06)
[2018-08-31] MEDS: PRENATAL VITAMINS W/ FOLIC ACID TABLET (FP) PO SCH (10:22)
--- NOTE | 2018-08-31 15:06 | PN ---
[facility] CIWA - CIWA Score Nausea/Vomitin-No Nausea/No Vomiting Muscle Tremors: 1-None Visible, but [place] Anxiety: 0-No Anxiety, at Ease Agitation: 1-Slight > Activity Paroxysmal Sweats: 1-Minimal Palms Moist Orientation: 0-Oriented Tacttile Disturbances: 0-None Auditory Disturbances: 0-None Visual Disturbances: 0-None Headache: 0-None Present CIWA-Ar Total Score: 3 S COWS - Scale Resting Pulse: 0= [place] 80 or Below Sweatin= Chills/Flushing Restless Observation: 0= Sits Still Pupil Size: 0= Normal to Room Light Bone or Joint Aches: 1= Mild Discomfort Runny Nose/ Eye Tearin= None GI Upset > 30mins: 0= None Tremor Observation of Outstretched Hands: 0= None Yawning Observation: 1= 1-2x During Session Anxiety or Irritability: 1=Feels Anxious/Irritable Goose Flesh Skin: 0=Smooth Skin COWS Score: 4 [facility] Progress Note (SOAP) Subjective: feeling better mild tremor little sweating less body aches Objective: 08/31/18 15:05 Vital Signs Temperature 96.9 F L 08/31/18 13:31 Pulse Rate 84 08/31/18 13:31 Respiratory Rate 20 08/31/18 13:31 Blood Pressure 138/81 08/31/18 13:31 O2 Sat by Pulse Oximetry (%) Laboratory Last Values WBC 5.4 K/mm3 (4.0-10.0) 08/28/18 05:35 RBC 3.70 M/mm3 (4.00-5.60) L 08/28/18 05:35 Hgb 11.4 GM/dL (11.7-16.9) L 08/28/18 05:35 Hct 33.8 % (35.4-49) L 08/28/18 05:35 MCV 91.1 fl (80-96) 08/28/18 05:35 MCH 30.9 pg (25.7-33.7) 08/28/18 05:35 MCHC 33.9 g/dl (32.0-35.9) 08/28/18 05:35 RDW 13.9 % (11.9-15.9) 08/28/18 05:35 Plt Count 295 K/MM3 (134-434) 08/28/18 05:35 MPV 7.8 fl (7.5-11.1) 08/28/18 05:35 Sodium 138 mmol/L (136-145) 08/28/18 05:35 Potassium 4.6 mmol/L (3.5-5.1) 08/28/18 05:35 Chloride 104 mmol/L (98-107) 08/28/18 05:35 Carbon Dioxide 28 mmol/L (21-32) 08/28/18 05:35 Anion Gap 5 MMOL/L (8-16) L 08/28/18 05:35 BUN 15 mg/dL (7-18) 08/28/18 05:35 Creatinine 1.2 mg/dL (0.55-1.3) 08/28/18 05:35 Creat Clearance w eGFR > 60 (>60) 08/28/18 05:35 Random Glucose 93 mg/dL (74-106) 08/28/18 05:35 Calcium 9.1 mg/dL (8.5-10.1) 08/28/18 05:35 Total Bilirubin 0.3 mg/dL (0.2-1) 08/28/18 05:35 AST 28 U/L (15-37) 08/28/18 05:35 ALT 38 U/L (13-61) 08/28/18 05:35 Alkaline Phosphatase 75 U/L (45-117) 08/28/18 05:35 Total Protein 6.9 g/dl (6.4-8.2) 08/28/18 05:35 Albumin 3.8 g/dl (3.4-5.0) 08/28/18 05:35 Urine Color Ltyellow 08/28/18 09:33 Urine Appearance Clear 08/28/18 09:33 Urine pH 5.0 (5.0-8.0) D 08/28/18 09:33 Ur Specific [place] 1.020 (1.010-1.035) 08/28/18 09:33 Urine Protein Negative (NEGATIVE) 08/28/18 09:33 Urine Glucose (UA) Negative (NEGATIVE) 08/28/18 09:33 Urine Ketones Negative (NEGATIVE) 08/28/18 09:33 Urine Blood Negative (NEGATIVE) 08/28/18 09:33 Urine Nitrite Negative (NEGATIVE) 08/28/18 09:33 Urine Bilirubin Negative (<2.0 mg/dL) 08/28/18 09:33 Urine Urobilinogen Negative mg/dL (0.2-1.0) 08/28/18 09:33 Ur Leukocyte Esterase Negative (NEGATIVE) 08/28/18 09:33 RPR Titer Nonreactive (NONREACTIVE) 08/28/18 05:35 lab noted Assessment: 08/31/18 15:06 mild withdrawal sx Plan: continue detox
[2018-08-31] MEDS: MELATONIN 5 MG TABLETS PO PRN (22:06)
[2018-08-31] MEDS: THIAMINE HCL 100 MG TABLET (FP) PO SCH (22:06)
[2018-09-01] MEDS ORDERED: METHADONE HCL 5 MG TABLET (FOR DETOX USE ONLY) PO SCH (06:00)
[2018-09-01 07:09] VITALS: BP 129/78; PULSE 79; TEMP 97
--- NOTE | 2018-09-01 15:22 | DS ---
[facility] Detox Discharge Summary Admission Date: 08/27/18 Discharge Date: 09/01/18 - History Present History: Alcohol Dependence, Opioid Dependence Additional Comments: 53 years old male admitted on 08/27/18 for alcohol and opiate withdrawal stabilization [facility] Pertinent Past History: encourage the patient turkey picker narcan kit from pharmacy - Physical Exam Results Vital Signs: Vital Signs Temperature 97 F L 09/01/18 07:09 Pulse Rate 79 09/01/18 07:09 Respiratory Rate 16 09/01/18 07:09 Blood Pressure 129/78 09/01/18 07:09 O2 Sat by Pulse Oximetry (%) Pertinent Admission Physical Exam Findings: alcohol and opiate withdrawal sx Laboratory Last Values WBC 5.4 K/mm3 (4.0-10.0) 08/28/18 05:35 RBC 3.70 M/mm3 (4.00-5.60) L 08/28/18 05:35 Hgb 11.4 GM/dL (11.7-16.9) L 08/28/18 05:35 Hct 33.8 % (35.4-49) L 08/28/18 05:35 MCV 91.1 fl (80-96) 08/28/18 05:35 MCH 30.9 pg (25.7-33.7) 08/28/18 05:35 MCHC 33.9 g/dl (32.0-35.9) 08/28/18 05:35 RDW 13.9 % (11.9-15.9) 08/28/18 05:35 Plt Count 295 K/MM3 (134-434) 08/28/18 05:35 MPV 7.8 fl (7.5-11.1) 08/28/18 05:35 Sodium 138 mmol/L (136-145) 08/28/18 05:35 Potassium 4.6 mmol/L (3.5-5.1) 08/28/18 05:35 Chloride 104 mmol/L (98-107) 08/28/18 05:35 Carbon Dioxide 28 mmol/L (21-32) 08/28/18 05:35 Anion Gap 5 MMOL/L (8-16) L 08/28/18 05:35 BUN 15 mg/dL (7-18) 08/28/18 05:35 Creatinine 1.2 mg/dL (0.55-1.3) 08/28/18 05:35 Creat Clearance w eGFR > 60 (>60) 08/28/18 05:35 Random Glucose 93 mg/dL (74-106) 08/28/18 05:35 Calcium 9.1 mg/dL (8.5-10.1) 08/28/18 05:35 Total Bilirubin 0.3 mg/dL (0.2-1) 08/28/18 05:35 AST 28 U/L (15-37) 08/28/18 05:35 ALT 38 U/L (13-61) 08/28/18 05:35 Alkaline Phosphatase 75 U/L (45-117) 08/28/18 05:35 Total Protein 6.9 g/dl (6.4-8.2) 08/28/18 05:35 Albumin 3.8 g/dl (3.4-5.0) 08/28/18 05:35 Urine Color Ltyellow 08/28/18 09:33 Urine Appearance Clear 08/28/18 09:33 Urine pH 5.0 (5.0-8.0) D 08/28/18 09:33 Ur Specific [place] 1.020 (1.010-1.035) 08/28/18 09:33 Urine Protein Negative (NEGATIVE) 08/28/18 09:33 Urine Glucose (UA) Negative (NEGATIVE) 08/28/18 09:33 Urine Ketones Negative (NEGATIVE) 08/28/18 09:33 Urine Blood Negative (NEGATIVE) 08/28/18 09:33 Urine Nitrite Negative (NEGATIVE) 08/28/18 09:33 Urine Bilirubin Negative (<2.0 mg/dL) 08/28/18 09:33 Urine Urobilinogen Negative mg/dL (0.2-1.0) 08/28/18 09:33 Ur Leukocyte Esterase Negative (NEGATIVE) 08/28/18 09:33 RPR Titer Nonreactive (NONREACTIVE) 08/28/18 05:35 lab noted discuss medication assisted treatment programs - Treatment Hospital Course: Detox Protocol Followed, Detoxed Safely, Responded well, Discharged Condition Good, Rehab Referral Accepted Patient has Accepted a Rehab Referral to: [facility] - Medication Discharge Medications: Ambulatory Orders Naloxone HCl [Narcan] 4 mg NS ASDIR PRN #1 spray 08/31/18 - Diagnosis (1) Alcohol dependence with uncomplicated withdrawal Status: Acute (2) Heroin dependence Status: Acute (3) Eczema Status: Chronic Qualifiers: Eczema type: flexural Qualified Code(s): L20.82 - Flexural eczema (4) Nicotine dependence Status: Acute Qualifiers: Nicotine product type: cigarettes Substance use status: in withdrawal Qualified Code(s): F17.213 - Nicotine dependence, cigarettes, with withdrawal (5) Weight loss Status: Acute (6) Drug-induced mood disorder Status: Suspected - AMA Did Patient Leave Against Medical Advice: No
== END 2018-09-01 08:56 | disposition home or self-care (01) | DRG 773 ==
LOC: YASAS 11:20 → Y3N 13:53
PROVIDERS: ADMIT Surgery; ATTEND Surgery
PROC: HZ2ZZZZ Detoxification Services for Substance Abuse Treatment (ICD-10-PCS; principal; 2018-08-27)
DX: F11.23 Opioid dependence with withdrawal (principal); F10.230 Alcohol dependence with withdrawal, uncomplicated; F14.20 Cocaine dependence, uncomplicated; F12.10 Cannabis abuse, uncomplicated; F17.213 Nicotine dependence, cigarettes, with withdrawal; F19.24 Other psychoactive substance dependence with psychoactive substance-induced mood disorder; E86.0 Dehydration; B35.3 Tinea pedis; L20.82 Flexural eczema; M18.11 Unilateral primary osteoarthritis of first carpometacarpal joint, right hand; R63.4 Abnormal weight loss; Z68.23 Body mass index [BMI] 23.0-23.9, adult; Z86.69 Personal history of other diseases of the nervous system and sense organs
CPT/HCPCS: 36415; 73130-TC-RT-FY; 80053; 81003; 85027; 86593

== ENCOUNTER 2019-08-17 08:44 | Inpatient (IN) | payer OTHER ==
--- NOTE | 2019-08-17 09:09 | BHS.RME ---
Substance Use & Tx History - Substance Use History Nicotine Substance amount: 1 pack per day Frequency of use: Daily Substance route: Smoking Date of Last Use: 08/17/19 Cannabis Substance amount: sporadic use Frequency of use: Less than 3 times per week Substance route: Smoking Date of Last Use: 08/16/19 Alcohol Substance amount: 1 pint per day vodka Frequency of use: Daily Substance route: Oral Date of Last Use: 08/16/19 Opiates (Heroin) Substance amount: 1-2 bundles Frequency of use: Daily Substance route: Inhalation (ex: sniffing or snorting) Date of Last Use: 08/17/19 Physical/Psych/Mental Status - Behavior Eye Contact: Normal - Cooperativeness Cooperativeness: Cooperative - Thinking Thought Processes: Tight, Logical, Goal Directed - Physical Health Problems Is patient presently having any pain?: No Does patient presently have any injuries (include location): No Does patient currently have a fever: No Is patient : No COWS - Scale Resting Pulse: 0= [place] 80 or Below Sweatin= No chills or Flushing Restless Observation: 1= Difficult to Sit Still Pupil Size: 0= Normal to Room Light Bone or Joint Aches: 4=Acute Joint/Muscle Pain Runny Nose/ Eye Tearin= Nasal Congestion GI Upset > 30mins: 1= Stomach Cramp Tremor Observation: 0= None Yawning Observation: 0= None Anxiety or Irritability: 1=Feels Anxious/Irritable Goose Flesh Skin: 0=Smooth Skin (used this am 2 bags heroin at 7:00AM) COWS Score: 8
[2019-08-17 09:30] VITALS: BMI 24.3
--- NOTE | 2019-08-17 09:51 | HP ---
COWS - Scale Resting Pulse: 0= [place] 80 or Below Sweatin= No chills or Flushing Restless Observation: 1= Difficult to Sit Still Pupil Size: 0= Normal to Room Light Bone or Joint Aches: 4=Acute Joint/Muscle Pain Runny Nose/ Eye Tearin= Nasal Congestion GI Upset > 30mins: 1= Stomach Cramp Tremor Observation: 0= None Yawning Observation: 0= None Anxiety or Irritability: 1=Feels Anxious/Irritable Goose Flesh Skin: 0=Smooth Skin (used this am 2 bags heroin at 7:00AM) COWS Score: 8 CIWA Score - Admission Criteria [facility] Guidelines: Admission for Medically Managed Detox: Requires at least one of the followin. CIWA greater than 12 2. Seizures within the past 24 hours 3. Delirium tremens within the past 24 hours 4. Hallucinations within the past 24 hours 5. Acute intervention needed for co occurring medical disorder 6. Acute intervention needed for co occurring psychiatric disorder 7. Severe withdrawal that cannot be handled at a lower level of care (continued vomiting, continued diarrhea, abnormal vital signs) requiring intravenous medication and/or fluids 8. Admitting History and Physical - Admission Chief Complaint: Mr. García is a 54 yo gentleman who presents requesting detox from heroin. He also drinks alcohol. History of Present Illness: Mr. García is a 54 yo gentleman who presents requesting detox from heroin. He also drinks alcohol. PMH: chronic low back pain PSH: none Psych: none Substance use: Heroine 1-2 bundles per day, first used at age 27 yo, last used this am. Sniff Alcohol: on e pint Vodka dialy, first use at age 17 y, last used last night. No hx of black outs or seizures THC: ne blunt per day, first use age 17 y, last use last night Denies: cocaine, methadone, benzo - Past Medical History Musculoskeletal: Yes: Chronic low back pain - Smoking History Smoking history: Current every day smoker Have you smoked in the past 12 months: Yes Aproximately how many cigarettes per day: 20 - Alcohol/Substance Use Hx Alcohol Use: Yes Admission [facility] Allergies/Adverse Reactions: Allergies Allergy/AdvReac Type Severity Reaction Status Date / Time No Known Allergies Allergy Verified 08/17/19 09:24 Exam Limitations: No Limitations - Ebola screening Have you traveled outside of the country in the last 21 days: No Have you had contact with anyone from an Ebola affected area: No Have you been sick,other than usual withdrawal symptoms: No Do you have a fever: No - Review of Systems Constitutional: No Symptoms Reported EENT: reports: No Symptoms Reported Respiratory: reports: No Symptoms reported Cardiac: reports: No Symptoms Reported GI: reports: No Symptoms Reported : reports: No Symptoms Reported Musculoskeletal: reports: No Symptoms Reported Integumentary: reports: Rash (dry between toes, no open wounds) Neuro: reports: No Symptoms reported Endocrine: reports: No Symptoms Reported Hematology: reports: No Symptoms Reported Psychiatric: reports: No Sypmtoms Reported Patient History - Patient Medical History Hx Anemia: No Hx Asthma: No Hx Chronic Obstructive Pulmonary Disease (COPD): No Hx Cancer: No Hx Cardiac Disorders: No Hx Congestive Heart Failure: No Hx Hypertension: No Hx Hypercholesterolemia: No Hx Pacemaker: No HX Cerebrovascular Accident: No Hx Seizures: No Hx Dementia: No Hx Diabetes: No Hx Gastrointestinal Disorders: No Hx Liver Disease: No Hx Genitourinary Disorders: No Hx Sexually Transmitted Disorders: No Hx Renal Disease (ESRD): No Hx Thyroid Disease: No Hx Human Immunodeficiency Virus (HIV): No (Last Tested: 08/24 negative) Hx Hepatitis C: No (Last Tested: 04/2017: NEGATIVE.) Hx Depression: No Hx Suicide Attempt: No Hx Bipolar Disorder: No Hx Schizophrenia: No - Patient Surgical History Past Surgical History: No Hx Neurologic Surgery: No Hx Cataract Extraction: No Hx Cardiac Surgery: No Hx Lung Surgery: No Hx Breast Surgery: No Hx Breast Biopsy: No Hx Abdominal Surgery: No Hx Appendectomy: No Hx Cholecystectomy: No Hx Genitourinary Surgery: No Hx Section: No Hx Orthopedic Surgery: No Other Surgical History: DENIES. Anesthesia Reaction: No - PPD History Date: 08/29/18 Results: 0 MM PPD to be Administered?: Yes - Reproductive History Patient : No - Smoking Cessation Smoking history: Current every day smoker Have you smoked in the past 12 months: Yes Aproximately how many cigarettes per day: 20 Cigars Per Day: 0 Hx Chewing Tobacco Use: No Initiated information on smoking cessation: Yes 'Breaking Loose' booklet given: 08/17/19 - Substances abused Heroin Substance route: Inhalation Frequency: Daily Amount used: 10 to 20 bags Age of first use: 27 Date of last use: 08/17/19 Alcohol Substance route: Oral Frequency: Daily Amount used: 1 pint of vodka Age of first use: 17 Date of last use: 08/16/19 Marijuana/Hashish Substance route: Smoking Frequency: Daily Amount used: 1 blunt Age of first use: 17 Date of last use: 08/16/19 Admission Physical Exam [facility] - Vital Signs Vital Signs: Vital Signs - 24 hr 08/17/19 09:25 Temperature 97.8 F Pulse Rate 68 Respiratory 20 Rate Blood Pressure 154/77 - Physical General Appearance: Yes: Tremorous, Irritable, Anxious HEENTM: Yes: Nasal Congestion Respiratory: Yes: Normal Breath Sounds Neck: Yes: Within Normal Limits Breast: Yes: Breast Exam Deferred Cardiology: Yes: Regular Rate, S1, S2 Abdominal: Yes: Normal Bowel Sounds, Non Tender, Flat, Soft Genitourinary: Yes: Other (deferred) Back: Yes: Normal Inspection Musculoskeletal: Yes: Within Normal Limits Extremities: Yes: Within Normal Limits Neurological: Yes: Within Normal Limits Integumentary: Yes: Dry (between most toes) Cleared for Admission [facility] - Detox or Rehab [facility] Level of Care: Medically Managed Breathalyzer - Breathalyzer Breathalyzer: 0 Urine Drug Screen - Test Device Lot number: [id number] Expiration date: 05/30/21 - Control Is test valid?: Yes - Results Drug screen NEGATIVE: No Urine drug screen results: THC-Marijuana, JAIR-Cocaine, FEN-Fentanyl, MOP-Opiates , MTD-Methadone Inpatient Rehab Admission - Rehab Decision to Admit Inpatient rehab admission?: No
[2019-08-17] MEDS ORDERED: MAGNESIUM HYDROX 2400MG/30ML ORAL SUSPENSION 30 ML CUP PO PRN (09:52)
[2019-08-17] MEDS ORDERED: IBUPROFEN 400 MG TABLET (FP) PO PRN (09:52)
[2019-08-17] MEDS ORDERED: METHOCARBAMOL 500 MG TABLET PO PRN (09:52)
[2019-08-17] MEDS ORDERED: MENTHOL/PHENOL 1 EACH UD MM PRN (09:52)
[2019-08-17] MEDS ORDERED: hydrOXYzine PAMOATE 25 MG CAPSULE (FP) PO PRN (09:52)
[2019-08-17] MEDS ORDERED: MAGNESIUM CITRATE 300 ML BOTTLE PO PRN (09:52)
[2019-08-17] MEDS ORDERED: BISMUTH SUBSALICYLATE 262 MG/15 ML BTL PO PRN (09:52)
[2019-08-17] MEDS ORDERED: MAG HYDROX/AL HYDROX/SIMETH 30 ML UNIT-DOSE CUP PO PRN (09:52)
[2019-08-17] MEDS ORDERED: ACETAMINOPHEN 325 MG TABLET (FP) PO PRN ×2 (09:52)
[2019-08-17] MEDS ORDERED: METHADONE HCL 10 MG TABLET (FOR DETOX USE ONLY) PO ONE (10:15)
[2019-08-17 11:56] LABS: HEMOGLOBIN 12.5 GM/dL (11.7-16.9); MCH 30.2 pg (25.7-33.7); MEAN CELL VOLUME 91.5 fl (80-96); MEAN PLT VOLUME 7.3 fl (7.5-11.1); PLATELET COUNT 294 K/MM3 (134-434); RBC 4.15 M/mm3 (4.00-5.60); RDW 14.7 % (11.9-15.9); WHITE BLOOD COUNT 4.1 K/mm3 (4.0-10.0)
[2019-08-17] MEDS: NICOTINE 21 MG/24 HOURS TOPICAL PATCH TD SCH (12:05)
[2019-08-17 12:16] LABS: ALBUMIN 3.8 g/dl (3.4-5.0); BILIRUBIN,TOTAL 0.6 mg/dL (0.2-1); BLOOD UREA NITROGEN 15.2 mg/dL (7-18); CALCIUM 8.8 mg/dL (8.5-10.1); TOT PROT 7.2 g/dl (6.4-8.2)
[2019-08-17] MEDS: VITAMINS A AND D TOPICAL OINTMENT 60 GM TUBE TP SCH ×3 (12:26→23:11)
[2019-08-17] MEDS: PRENATAL VITAMINS W/ FOLIC ACID TABLET (FP) PO SCH (12:35)
[2019-08-17] MEDS: THIAMINE HCL 100 MG TABLET (FP) PO SCH (22:20)
[2019-08-17] MEDS: MELATONIN 5 MG TABLETS PO PRN (22:51)
[2019-08-17] MEDS: cloNIDine HCL 0.1 MG TABLET PO PRN (22:51)
[2019-08-18] MEDS: VITAMINS A AND D TOPICAL OINTMENT 60 GM TUBE TP SCH ×4 (06:28→23:49)
[2019-08-18] MEDS ORDERED: METHADONE HCL 10 MG TABLET (FOR DETOX USE ONLY) ONE (08:45)
[2019-08-18] MEDS ORDERED: METHADONE HCL 5 MG TABLET (FOR DETOX USE ONLY) ONE (08:45)
[2019-08-18] MEDS ORDERED: METHADONE (DETOX) 20 MG, METHADONE (DETOX) 5 MG PO ONE (10:00)
[2019-08-18] MEDS: PRENATAL VITAMINS W/ FOLIC ACID TABLET (FP) PO SCH (10:44)
[2019-08-18] MEDS: NICOTINE 21 MG/24 HOURS TOPICAL PATCH TD SCH (10:44)
[2019-08-18] MEDS: cloNIDine HCL 0.1 MG TABLET PO PRN (14:31)
[2019-08-18] MEDS ORDERED: chlordiazePOXIDE HCL 25 MG CAPSULE PO PRN (15:02)
--- NOTE | 2019-08-18 15:08 | PN ---
S CIWA - CIWA Score Nausea/Vomitin Muscle Tremors: 2 Anxiety: 2 Agitation: 2 Paroxysmal Sweats: 1-Minimal Palms Moist Orientation: 0-Oriented Tacttile Disturbances: 1-Very Mild Itch/Numbness Auditory Disturbances: 0-None Visual Disturbances: 0-None Headache: 2-Mild CIWA-Ar Total Score: 12 [facility] COWS - Scale Resting Pulse: 0= [place] 80 or Below Sweatin= No chills or Flushing Restless Observation: 1= Difficult to Sit Still Pupil Size: 1= Pupils >than Normal Bone or Joint Aches: 1= Mild Discomfort Runny Nose/ Eye Tearin= Nasal Congestion GI Upset > 30mins: 1= Stomach Cramp Tremor Observation of Outstretched Hands: 2= Slight Tremor Visible Yawning Observation: 1= 1-2x During Session Anxiety or Irritability: 2=Irritable/Anxious Goose Flesh Skin: 0=Smooth Skin COWS Score: 10 [facility] Progress Note (SOAP) Subjective: alert,irritable,anxious,interrupted sleep,pain in the body Objective: 08/18/19 15:04 Vital Signs Temperature 98.2 F 08/18/19 13:47 Pulse Rate 51 L 08/18/19 13:47 Respiratory Rate 17 08/18/19 13:47 Blood Pressure 147/90 08/18/19 13:47 O2 Sat by Pulse Oximetry (%) 08/18/19 15:05 Laboratory Last Values WBC 4.1 K/mm3 (4.0-10.0) 08/17/19 10:05 RBC 4.15 M/mm3 (4.00-5.60) 08/17/19 10:05 Hgb 12.5 GM/dL (11.7-16.9) 08/17/19 10:05 Hct 38.0 % (35.4-49) 08/17/19 10:05 MCV 91.5 fl (80-96) 08/17/19 10:05 MCH 30.2 pg (25.7-33.7) 08/17/19 10:05 MCHC 33.0 g/dl (32.0-35.9) 08/17/19 10:05 RDW 14.7 % (11.9-15.9) 08/17/19 10:05 Plt Count 294 K/MM3 (134-434) 08/17/19 10:05 MPV 7.3 fl (7.5-11.1) L 08/17/19 10:05 Sodium 136 mmol/L (136-145) 08/17/19 10:05 Potassium 4.0 mmol/L (3.5-5.1) 08/17/19 10:05 Chloride 104 mmol/L (98-107) 08/17/19 10:05 Carbon Dioxide 27 mmol/L (21-32) 08/17/19 10:05 Anion Gap 5 MMOL/L (8-16) L 08/17/19 10:05 BUN 15.2 mg/dL (7-18) 08/17/19 10:05 Creatinine 1.0 mg/dL (0.55-1.3) 08/17/19 10:05 Est GFR (CKD-EPI)AfAm 99.85 08/17/19 10:05 Est GFR (CKD-EPI)NonAf 86.15 08/17/19 10:05 Random Glucose 100 mg/dL (74-106) 08/17/19 10:05 Calcium 8.8 mg/dL (8.5-10.1) 08/17/19 10:05 Total Bilirubin 0.6 mg/dL (0.2-1) 08/17/19 10:05 AST 19 U/L (15-37) 08/17/19 10:05 ALT 31 U/L (13-61) 08/17/19 10:05 Alkaline Phosphatase 77 U/L (45-117) 08/17/19 10:05 Total Protein 7.2 g/dl (6.4-8.2) 08/17/19 10:05 Albumin 3.8 g/dl (3.4-5.0) 08/17/19 10:05 RPR Titer Nonreactive (NONREACTIVE) 08/17/19 10:05 Assessment: 08/18/19 15:06 withdrawal symptom Plan: continue methadone and librium regimen
[2019-08-18] MEDS: chlordiazePOXIDE HCL 25 MG CAPSULE PO SCH ×2 (17:19→22:05)
[2019-08-18] MEDS: THIAMINE HCL 100 MG TABLET (FP) PO SCH (21:56)
[2019-08-18] MEDS: MELATONIN 5 MG TABLETS PO PRN (21:56)
[2019-08-19] MEDS: chlordiazePOXIDE HCL 25 MG CAPSULE PO SCH ×4 (05:55→22:08)
[2019-08-19] MEDS: VITAMINS A AND D TOPICAL OINTMENT 60 GM TUBE TP SCH ×3 (06:00→17:36)
[2019-08-19] MEDS ORDERED: METHADONE HCL 10 MG TABLET (FOR DETOX USE ONLY) PO ONE (10:00)
[2019-08-19] MEDS: PRENATAL VITAMINS W/ FOLIC ACID TABLET (FP) PO SCH (11:00)
[2019-08-19] MEDS: NICOTINE 21 MG/24 HOURS TOPICAL PATCH TD SCH (11:00)
[2019-08-19] MEDS ORDERED: ONDANSETRON *ODT* 4 MG TABLET SL PRN (12:40)
--- NOTE | 2019-08-19 12:42 | PN ---
[facility] CIWA - CIWA Score Nausea/Vomitin-Mild Nausea/No Vomiting Muscle Tremors: 2 Anxiety: 2 Agitation: 2 Paroxysmal Sweats: 2 Orientation: 0-Oriented Tacttile Disturbances: 0-None Auditory Disturbances: 0-None Visual Disturbances: 0-None Headache: 1-Very Mild CIWA-Ar Total Score: 10 BHS COWS - Scale Resting Pulse: 0= [place] 80 or Below Sweatin= Chills/Flushing Restless Observation: 1= Difficult to Sit Still Pupil Size: 1= Pupils >than Normal Bone or Joint Aches: 1= Mild Discomfort Runny Nose/ Eye Tearin= Nasal Congestion GI Upset > 30mins: 1= Stomach Cramp Tremor Observation of Outstretched Hands: 1= Tremor [place], Not Seen Yawning Observation: 1= 1-2x During Session Anxiety or Irritability: 1=Feels Anxious/Irritable Goose Flesh Skin: 3=Piloerection COWS Score: 12 BHS Progress Note (SOAP) Subjective: pt states still feeling uncomfortable with detox- pt on librium and methadone. O: Vital Signs - 24 hr 08/18/19 08/18/19 08/19/19 13:47 21:00 00:32 Temperature 98.2 F 98.6 F Pulse Rate 51 L 71 Respiratory 17 18 18 Rate Blood Pressure 147/90 140/87 08/19/19 08/19/19 08/19/19 03:49 07:23 08:57 Temperature 98.1 F 98.6 F Pulse Rate 67 91 H Respiratory 18 18 18 Rate Blood Pressure 114/64 126/88 Laboratory Tests 08/17/19 08/17/19 08/17/19 10:05 10:05 10:05 WBC 4.1 RBC 4.15 Hgb 12.5 Hct 38.0 MCV 91.5 MCH 30.2 MCHC 33.0 RDW 14.7 Plt Count 294 MPV 7.3 L Sodium 136 Potassium 4.0 Chloride 104 Carbon Dioxide 27 Anion Gap 5 L BUN 15.2 Creatinine 1.0 Est GFR (CKD-EPI)AfAm 99.85 Est GFR (CKD-EPI)NonAf 86.15 Random Glucose 100 Calcium 8.8 Total Bilirubin 0.6 AST 19 ALT 31 Alkaline Phosphatase 77 Total Protein 7.2 Albumin 3.8 RPR Titer Nonreactive a/p OUD and AUD- continue detox protocols, pt has prn meds for Sx Rx.
[2019-08-19] MEDS: THIAMINE HCL 100 MG TABLET (FP) PO SCH (22:07)
[2019-08-19] MEDS: MELATONIN 5 MG TABLETS PO PRN (22:08)
[2019-08-20] MEDS: VITAMINS A AND D TOPICAL OINTMENT 60 GM TUBE TP SCH ×3 (01:01→11:28)
[2019-08-20] MEDS: chlordiazePOXIDE HCL 25 MG CAPSULE PO SCH ×2 (05:47→10:31)
[2019-08-20] MEDS ORDERED: METHADONE (DETOX) 10 MG, METHADONE (DETOX) 5 MG PO ONE (10:00)
[2019-08-20] MEDS ORDERED: METHADONE HCL 5 MG TABLET (FOR DETOX USE ONLY) ONE (10:10)
[2019-08-20] MEDS ORDERED: METHADONE HCL 10 MG TABLET (FOR DETOX USE ONLY) ONE (10:11)
[2019-08-20] MEDS: NICOTINE 21 MG/24 HOURS TOPICAL PATCH TD SCH (10:31)
[2019-08-20] MEDS: PRENATAL VITAMINS W/ FOLIC ACID TABLET (FP) PO SCH (10:31)
--- NOTE | 2019-08-20 11:40 | PN ---
S CIWA - CIWA Score Nausea/Vomitin-Mild Nausea/No Vomiting Muscle Tremors: 2 Anxiety: 1-Mildly Anxious Agitation: 1-Slight > Activity Paroxysmal Sweats: 1-Minimal Palms Moist Orientation: 0-Oriented Tacttile Disturbances: 0-None Auditory Disturbances: 0-None Visual Disturbances: 0-None Headache: 0-None Present CIWA-Ar Total Score: 6 BHS COWS - Scale Resting Pulse: 0= [place] 80 or Below Sweatin= No chills or Flushing Restless Observation: 0= Sits Still Pupil Size: 1= Pupils >than Normal Bone or Joint Aches: 1= Mild Discomfort Runny Nose/ Eye Tearin= None GI Upset > 30mins: 0= None Tremor Observation of Outstretched Hands: 0= None Yawning Observation: 0= None Anxiety or Irritability: 1=Feels Anxious/Irritable Goose Flesh Skin: 0=Smooth Skin COWS Score: 3 BHS Progress Note (SOAP) Subjective: pt continuing with dual detox. O: Vital Signs - 24 hr 08/19/19 08/19/19 08/19/19 13:07 17:05 20:41 Temperature 96.1 F L 98.1 F 99 F Pulse Rate 65 81 81 Respiratory 18 18 18 Rate Blood Pressure 135/84 132/87 126/89 08/20/19 08/20/19 04:30 05:43 Temperature 97.9 F Pulse Rate 50 L Respiratory 18 18 Rate Blood Pressure 124/75 Laboratory Tests 08/17/19 08/17/19 08/17/19 10:05 10:05 10:05 WBC 4.1 RBC 4.15 Hgb 12.5 Hct 38.0 MCV 91.5 MCH 30.2 MCHC 33.0 RDW 14.7 Plt Count 294 MPV 7.3 L Sodium 136 Potassium 4.0 Chloride 104 Carbon Dioxide 27 Anion Gap 5 L BUN 15.2 Creatinine 1.0 Est GFR (CKD-EPI)AfAm 99.85 Est GFR (CKD-EPI)NonAf 86.15 Random Glucose 100 Calcium 8.8 Total Bilirubin 0.6 AST 19 ALT 31 Alkaline Phosphatase 77 Total Protein 7.2 Albumin 3.8 RPR Titer Nonreactive a/p: continue AUD and OUD treatment pt doing well. Considering Suboxone as fci MAT
--- NOTE | 2019-08-20 14:45 | DS ---
[facility] Detox Discharge Summary Admission Date: 08/17/19 Discharge Date: 08/20/19 - History Present History: Alcohol Dependence, Opioid Dependence Pertinent Past History: pt wants to leave today. Pt states he has Suboxone at home and is in treatment. Pt states alcohol is not his drug of choice Vital Signs - 24 hr 08/19/19 08/19/19 08/20/19 17:05 20:41 04:30 Temperature 98.1 F 99 F Pulse Rate 81 81 Respiratory 18 18 18 Rate Blood Pressure 132/87 126/89 08/20/19 05:43 Temperature 97.9 F Pulse Rate 50 L Respiratory 18 Rate Blood Pressure 124/75 Laboratory Tests 08/17/19 08/17/19 08/17/19 10:05 10:05 10:05 WBC 4.1 RBC 4.15 Hgb 12.5 Hct 38.0 MCV 91.5 MCH 30.2 MCHC 33.0 RDW 14.7 Plt Count 294 MPV 7.3 L Sodium 136 Potassium 4.0 Chloride 104 Carbon Dioxide 27 Anion Gap 5 L BUN 15.2 Creatinine 1.0 Est GFR (CKD-EPI)AfAm 99.85 Est GFR (CKD-EPI)NonAf 86.15 Random Glucose 100 Calcium 8.8 Total Bilirubin 0.6 AST 19 ALT 31 Alkaline Phosphatase 77 Total Protein 7.2 Albumin 3.8 RPR Titer Nonreactive - Physical Exam Results Vital Signs: Vital Signs Temperature 97.9 F 08/20/19 05:43 Pulse Rate 50 L 08/20/19 05:43 Respiratory Rate 18 08/20/19 05:43 Blood Pressure 124/75 08/20/19 05:43 O2 Sat by Pulse Oximetry (%) - Treatment Hospital Course: Detox Protocol Followed, Detoxed Safely, Responded well, Discharged Condition Good - Medication Discharge Medications: Ambulatory Orders Naloxone HCl [Narcan] 4 mg NS ASDIR PRN #1 spray 08/31/18
[2019-08-20 16:11] VITALS: BP 142/73; PULSE 77; TEMP 97.8
[2019-08-21] MEDS ORDERED: chlordiazePOXIDE HCL 10 MG CAPSULE PO PRN
[2019-08-21] MEDS ORDERED: chlordiazePOXIDE HCL 10 MG CAPSULE PO SCH (05:00)
[2019-08-21] MEDS ORDERED: METHADONE HCL 10 MG TABLET (FOR DETOX USE ONLY) PO ONE (10:00)
[2019-08-22] MEDS ORDERED: chlordiazePOXIDE HCL 10 MG CAPSULE PO SCH (05:00)
[2019-08-22] MEDS ORDERED: METHADONE HCL 5 MG TABLET (FOR DETOX USE ONLY) PO ONE (06:00)
[2019-08-23] MEDS ORDERED: chlordiazePOXIDE HCL 10 MG CAPSULE PO ONE (05:00)
== END 2019-08-20 16:03 | disposition home or self-care (01) | DRG 773 ==
LOC: YASAS 08:44 → Y6N 09:47
PROVIDERS: ADMIT Allergy & Immunology; ATTEND Allergy & Immunology
PROC: HZ2ZZZZ Detoxification Services for Substance Abuse Treatment (ICD-10-PCS; principal; 2019-08-17)
DX: F11.23 Opioid dependence with withdrawal (principal); F10.230 Alcohol dependence with withdrawal, uncomplicated; F12.20 Cannabis dependence, uncomplicated; F17.210 Nicotine dependence, cigarettes, uncomplicated; M54.5 Low back pain; G89.29 Other chronic pain
CPT/HCPCS: 36415; 80053; 85027; 86593; J0735